=== PATIENT | male | born 1985 | race Caucasian/White ===

== ENCOUNTER → 2019-05-06 13:46 | Outpatient (BNVA) | payer SELFPAY | PROVIDERS: PCP Family Medicine; Visit Provider Nurse Practitioner | DX: F90.2 Attention-deficit hyperactivity disorder, combined type (principal) | CPT/HCPCS: 99214 ==

== ENCOUNTER 2020-04-16 20:05 | Inpatient (IN) | payer MEDICAID, SELFPAY ==
[2020-04-16 20:20] VITALS: BP 117/67; PULSE 112; RESP 12; TEMP 37; O2SAT 99; BMI 20.5
--- NOTE | 2020-04-16 20:37 | PC.NURSE ---
ED physician asked this nurse to call poison control
--- NOTE | 2020-04-16 20:37 | PC.NURSE ---
Poison control call talked to Renate BUNN who advised against Remazacone due to the possibility of participating seizures if the street drugs were cut with anything else.
[2020-04-16 20:41] VITALS: BP 117/67; PULSE 102; RESP 25; O2SAT 95
--- NOTE | 2020-04-16 20:44 | XRR_ITS ---
PROCEDURE INFORMATION: Exam: XR Chest, 1 View Exam date and time: 04/16/2020 9:05 PM Age: 34 years old Clinical indication: Other: Overdose; Patient HX: Possibly swallowed around 80 xanex TECHNIQUE: Imaging protocol: XR of the chest Views: 1 view. COMPARISON: CR Chest 1 [place] [id number] 12/23/2017 10:06 PM FINDINGS: Lungs: Unremarkable. No consolidation. Pleural space: Unremarkable. No pleural effusion. No pneumothorax. Heart/Mediastinum: Unremarkable. No cardiomegaly. Bones/joints: Unremarkable. XR/XR chest 1V portable [id number] IMPRESSION: No acute findings.
--- NOTE | 2020-04-16 20:45 | ECG_ITS ---
[facility], Former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 Measurements Intervals [place] Rate: 84 P: 62 KS: 163 QRS: 78 QRSD: 95 T: 57 QT: 344 QTc: 407 Interpretive Statements SINUS RHYTHM Compared to ECG 12/23/2017 21:16:46 Sinus tachycardia no longer present Electronically Signed On 04-17-2020 17:24:48 FEATHER BONER by Maryellen Duong M.D. [id number]
--- NOTE | 2020-04-16 20:45 | W.ED.PSYCH ---
HPI - Psych General: Chief Complaint: Psychiatric Symptoms Stated Complaint: POSS SWALLOWED AROUND 80 XANAX PILLS Time Seen by Provider: 04/16/20 20:36 History of Present Illness: HPI Narrative: The patient is a 34-year-old male with past medical history ADHD and depression. He comes to the ER complaining that he feels like he is tired of life and wants to end it all. He says about an hour and a half ago he took 90 Xanax tabs that he bought off the street complaint: suicidal ideation and feels depressed Onset (ago): minute(s) (90) Associated psychiatric symptoms: suicidal ideation If self harm: admits thoughts of self harm, has acted on plan and intentional overdose Review of Systems General: Reports: ROS unobtainable due to medical condition (he is intoxicated on xanax and refuses to answer questions. ) [facility] ED PFSH: Medical History (Updated 04/16/20 @ 22:17 by Umesh Frias MD) Attention-deficit hyperactivity disorder, combined type Social History Smoking and tobacco status: current every day smoker cigarettes Smoking risk assessment/counseling performed?: Yes Tobacco counseling given: counseling >3 minutes Current gender identity: Male Physical Exam Const: COMMON NORMALS: patient oriented x3, alert and well nourished GENERAL APPEARANCE: comfortable and disheveled ORIENTATION/CONSCIOUSNESS: Yes awake, Yes oriented to person, Yes oriented to place, Yes oriented to time and Yes confused OTHER: Slight confusion. Answers questions slowly. Distracted easily. HENMT: COMMON NORMALS: normocephalic, external ears normal and Normal external nose present HEAD & SCALP: normal to inspection and normocephalic NOSE: Normal external nose present EXTERNAL EAR: Yes external ears normal MOUTH: Normal oral and palatal mucosa present THROAT: posterior oropharynx normal Eye: COMMON NORMALS: Equal, round and reactive pupils present and EOMs intact bilaterally GENERAL EYE: appearance normal, both eyes and all related structures PUPIL: Yes Equal, round and reactive pupils present Neck/C-Spine: COMMON NORMALS: full ROM, no lymphadenopathy, no meningeal signs and no JVD GENERAL: Yes normal visual inspection Lymph: LYMPHATIC: no lymphadenopathy noted Chest: COMMONS NORMALS: normal inspection of the chest and normal palpation of entire chest wall Resp: COMMON NORMALS: normal respiratory effort, No retractions, No use of accessory muscles, clear to auscultation bilaterally and percussion normal EFFORT & INSPECTION: Yes able to speak in complete sentences AUSCULTATION: clear to auscultation bilaterally PERCUSSION: percussion normal Cardio: COMMON NORMALS: no JVD, regular rhythm, S1 normal heart sound present, S2 normal heart sound present and Peripheral pulses 2+ throughout RATE: tachycardic RHYTHM: regular rhythm HEART SOUNDS: S1 normal heart sound present and S2 normal heart sound present PERIPHERAL PULSES: Peripheral pulses 2+ throughout GI: COMMON NORMALS: Normal to inspection, nondistended, normoactive bowel sounds present, Soft to palpation, non-tender and no masses INSPECTION: Yes normal to inspection PALPATION: Yes Soft to palpation : COMMON NORMALS: Yes no CVA tenderness BLADDER/KIDNEY EXAM: Yes no CVA tenderness Back/Pelvis: COMMON NORMALS: no CVA tenderness, thoracic and lumbar spine normal to inspection, no thoracic nor lumbar tenderness and thoraco-lumbar ROM normal Extremity: COMMON NORMALS: normal to inspection, full ROM, capillary refill normal, no joint enlargement and no pedal edema GENERAL: Yes normal exam except as noted Neuro: COMMON NORMALS: patient oriented x3, CN's II-XII intact bilaterally, moves all extremities, no focal motor deficits, no sensory deficits noted and gait normal SENSORIUM/ORIENTATION: Yes alert, Yes oriented to person, Yes oriented to place and Yes oriented to time MENINGEAL SIGNS: Yes no meningeal signs Psych: APPEARANCE: Yes unkempt and Yes disheveled ATTITUDE: Yes uncooperative and Yes Belligerent attititude/behavior present SPEECH: Yes slow THOUGHT PROCESS: disorganized and confused THOUGHT CONTENT: Yes Suicidality present ATTENTION/CONCENTRATION: Yes attention grossly impaired and Yes concentration grossly impaired Skin: COMMON NORMALS: no rashes or lesions noted NARRATIVE SKIN EXAM: Normal except abrasions to upper forehead. GENERAL SKIN EXAM: no rashes or lesions noted MDM - Psych MDM Narrative: Medical decision making narrative: 8:45 PM. Poison control recommends monitoring symptoms only. No Romazicon because he could have taken other drugs which may precipitate a seizure if given Romazicon. 1010: Patient is still A&O x4 answering questions appropriately. His heart rate has improved some. Not requiring oxygen to breathe. Stable for admission to the ICU. 96-hour involuntary admission paperwork filled out. Lab Data: Labs: Lab Results 04/16/20 04/16/20 04/16/20 Range/Units 20:25 21:00 21:00 WBC 10.0 (4.0-10.0) 10^3/ uL RBC 5.02 (4.1-5.3) 10^6/u L Hgb 16.0 (11.7-16.6) g/dL Hct 46.6 (42.0-52.0) % MCV 92.8 (80-94) fL MCH 31.9 (28.0-34.0) pg MCHC 34.3 (30.0-36.0) g/dL RDW 12.3 (12.1-15.1) % Plt Count 455 H (130-400) 10^3/c mm MPV 9.2 (7.4-10.4) fL Neut % (Auto) 64.6 % Lymph % (Auto) 25.2 % [place] % (Auto) 7.5 % Eos % (Auto) 1.5 % Baso % (Auto) 0.9 % Neut # (Auto) 6.47 (1.8-7.7) 10^3/u L Lymph # (Auto) 2.5 (0.8-4.8) 10^3/u L [place] # (Auto) 0.8 (0.2-0.9) 10^3/u L Eos # (Auto) 0.2 (0.0-0.8) 10^3/u L Baso # (Auto) 0.1 (0.0-0.1) 10^3/u L Nucleated RBC % (a uto) 0 % Nucleated RBCs # 0.0 /100WBC Specimen Type Sample Site ABG pH (7.35-7.45) ABG pCO2 (35-45) mmHg ABG pO2 (80.0-100.0) mmH g ABG HCO3 (22-26) mmol/L ABG Base Excess (-2.0-2.0) mmol/ L Devon Test Hematocrit (42-52) % Hgb O2 Saturation (95-100) % Carboxyhemoglobin (0.4-20.1) %THgb Methemoglobin (0.4-1.5) % Total Hemoglobin (14-18) g/dL O2 Delivery Device FiO2 % Assistant Auditor ID Sodium 139 (136-145) mmol/L Potassium 3.8 (3.5-5.1) mmol/L Chloride 101 (98-107) mmol/L Carbon Dioxide 27 (22-29) mmol/L Anion Gap 14.8 (5-19) BUN 14 (6-20) mg/dL Creatinine 0.7 (0.7-1.2) mg/dL GFR Calculation 130.7 H (90-130) mL/min Glucose 83 (65-115) mg/dL Calculated Osmolal ity 288 (285-295) mOsm/k g Lactate 1.6 (0.5-2.2) mmol/L Calcium 9.8 (8.5-10.5) mg/dL Total Bilirubin 0.3 (0.15-1.2) mg/dL AST 30 (0-40) U/L ALT 29 (0-41) U/L Alkaline Phosphata se 78 (40-130) IU/L Troponin T Baselin e (0-15) ng/L Total Protein 7.4 (6.6-8.7) g/dL Albumin 4.6 (3.5-5.2) g/dL Globulin 2.8 (1.3-4.6) g/dL Urine Color (Yellow) Urine Appearance (CLEAR) Urine pH (5-7) Ur Specific Gravit y (1.005-1.030) Urine Protein (Negative) Urine Glucose (UA) (Normal) Urine Ketones (Negative) Urine Blood (Negative) Urine Nitrate (Negative) Urine Bilirubin (Negative) Urine Urobilinogen (Negative) mg/dL Ur Leukocyte Charlene ase (Negative) Urine RBC (0-2) /hpf Urine WBC (0-5) /hpf Ur Squamous Epith Cells (0-5) /hpf Amorphous Sediment Urine Bacteria (NONE) /hpf Salicylates < 0.3 L (3-10) mg/dL Urine Opiates Scre en (Negative) ng/mL Acetaminophen < 5.0 L (10-30) ug/mL Ur Barbiturates Sc reen (Negative) ng/mL Ur Phencyclidine S crn (Negative) ng/mL Ur Amphetamines Sc reen (Negative) ng/mL U Benzodiazepines Scrn (Negative) ng/mL Urine Cocaine Scre en (Negative) ng/mL U Marijuana (THC) Screen (Negative) ng/mL Ethyl Alcohol < 10 (0-10) mg/dL 04/16/20 04/16/20 04/16/20 Range/Units 21:00 21:01 21:29 WBC (4.0-10.0) 10^3/ uL RBC (4.1-5.3) 10^6/u L Hgb (11.7-16.6) g/dL Hct (42.0-52.0) % MCV (80-94) fL MCH (28.0-34.0) pg MCHC (30.0-36.0) g/dL RDW (12.1-15.1) % Plt Count (130-400) 10^3/c mm MPV (7.4-10.4) fL Neut % (Auto) % Lymph % (Auto) % [place] % (Auto) % Eos % (Auto) % Baso % (Auto) % Neut # (Auto) (1.8-7.7) 10^3/u L Lymph # (Auto) (0.8-4.8) 10^3/u L [place] # (Auto) (0.2-0.9) 10^3/u L Eos # (Auto) (0.0-0.8) 10^3/u L Baso # (Auto) (0.0-0.1) 10^3/u L Nucleated RBC % (a uto) % Nucleated RBCs # /100WBC Specimen Type Arterial Sample Site Radial, left ABG pH 7.46 H (7.35-7.45) ABG pCO2 38.9 (35-45) mmHg ABG pO2 76.1 L (80.0-100.0) mmH g ABG HCO3 27.7 H (22-26) mmol/L ABG Base Excess 3.6 H (-2.0-2.0) mmol/ L Devon Test Pos Hematocrit 47.4 (42-52) % Hgb O2 Saturation 91.6 L (95-100) % Carboxyhemoglobin 4.3 (0.4-20.1) %THgb Methemoglobin 0.7 (0.4-1.5) % Total Hemoglobin 15.5 (14-18) g/dL O2 Delivery Device Room air FiO2 21.0 % Assistant Auditor ID Amh Sodium (136-145) mmol/L Potassium (3.5-5.1) mmol/L Chloride (98-107) mmol/L Carbon Dioxide (22-29) mmol/L Anion Gap (5-19) BUN (6-20) mg/dL Creatinine (0.7-1.2) mg/dL GFR Calculation (90-130) mL/min Glucose (65-115) mg/dL Calculated Osmolal ity (285-295) mOsm/k g Lactate (0.5-2.2) mmol/L Calcium (8.5-10.5) mg/dL Total Bilirubin (0.15-1.2) mg/dL AST (0-40) U/L ALT (0-41) U/L Alkaline Phosphata se (40-130) IU/L Troponin T Baselin e 6 (0-15) ng/L Total Protein (6.6-8.7) g/dL Albumin (3.5-5.2) g/dL Globulin (1.3-4.6) g/dL Urine Color Yellow (Yellow) Urine Appearance Clear (CLEAR) Urine pH 5 (5-7) Ur Specific Gravit y 1.010 (1.005-1.030) Urine Protein Neg (Negative) Urine Glucose (UA) Norm (Normal) Urine Ketones Negative (Negative) Urine Blood Trace H (Negative) Urine Nitrate Negative (Negative) Urine Bilirubin Neg (Negative) Urine Urobilinogen Norm (Negative) mg/dL Ur Leukocyte Charlene ase Negative (Negative) Urine RBC 0-4 H (0-2) /hpf Urine WBC 0-4 H (0-5) /hpf Ur Squamous Epith Cells 0-4 H (0-5) /hpf Amorphous Sediment Not Reportable Urine Bacteria Trace (NONE) /hpf Salicylates (3-10) mg/dL Urine Opiates Scre en (Negative) ng/mL Acetaminophen (10-30) ug/mL Ur Barbiturates Sc reen (Negative) ng/mL Ur Phencyclidine S crn (Negative) ng/mL Ur Amphetamines Sc reen (Negative) ng/mL U Benzodiazepines Scrn (Negative) ng/mL Urine Cocaine Scre en (Negative) ng/mL U Marijuana (THC) Screen (Negative) ng/mL Ethyl Alcohol (0-10) mg/dL 04/16/20 Range/Units 21:29 WBC (4.0-10.0) 10^3/ uL RBC (4.1-5.3) 10^6/u L Hgb (11.7-16.6) g/dL Hct (42.0-52.0) % MCV (80-94) fL MCH (28.0-34.0) pg MCHC (30.0-36.0) g/dL RDW (12.1-15.1) % Plt Count (130-400) 10^3/c mm MPV (7.4-10.4) fL Neut % (Auto) % Lymph % (Auto) % [place] % (Auto) % Eos % (Auto) % Baso % (Auto) % Neut # (Auto) (1.8-7.7) 10^3/u L Lymph # (Auto) (0.8-4.8) 10^3/u L [place] # (Auto) (0.2-0.9) 10^3/u L Eos # (Auto) (0.0-0.8) 10^3/u L Baso # (Auto) (0.0-0.1) 10^3/u L Nucleated RBC % (a uto) % Nucleated RBCs # /100WBC Specimen Type Sample Site ABG pH (7.35-7.45) ABG pCO2 (35-45) mmHg ABG pO2 (80.0-100.0) mmH g ABG HCO3 (22-26) mmol/L ABG Base Excess (-2.0-2.0) mmol/ L Devon Test Hematocrit (42-52) % Hgb O2 Saturation (95-100) % Carboxyhemoglobin (0.4-20.1) %THgb Methemoglobin (0.4-1.5) % Total Hemoglobin (14-18) g/dL O2 Delivery Device FiO2 % Assistant Auditor ID Sodium (136-145) mmol/L Potassium (3.5-5.1) mmol/L Chloride (98-107) mmol/L Carbon Dioxide (22-29) mmol/L Anion Gap (5-19) BUN (6-20) mg/dL Creatinine (0.7-1.2) mg/dL GFR Calculation (90-130) mL/min Glucose (65-115) mg/dL Calculated Osmolal ity (285-295) mOsm/k g Lactate (0.5-2.2) mmol/L Calcium (8.5-10.5) mg/dL Total Bilirubin (0.15-1.2) mg/dL AST (0-40) U/L ALT (0-41) U/L Alkaline Phosphata se (40-130) IU/L Troponin T Baselin e (0-15) ng/L Total Protein (6.6-8.7) g/dL Albumin (3.5-5.2) g/dL Globulin (1.3-4.6) g/dL Urine Color (Yellow) Urine Appearance (CLEAR) Urine pH (5-7) Ur Specific Gravit y (1.005-1.030) Urine Protein (Negative) Urine Glucose (UA) (Normal) Urine Ketones (Negative) Urine Blood (Negative) Urine Nitrate (Negative) Urine Bilirubin (Negative) Urine Urobilinogen (Negative) mg/dL Ur Leukocyte Charlene ase (Negative) Urine RBC (0-2) /hpf Urine WBC (0-5) /hpf Ur Squamous Epith Cells (0-5) /hpf Amorphous Sediment Urine Bacteria (NONE) /hpf Salicylates (3-10) mg/dL Urine Opiates Scre en Negative (Negative) ng/mL Acetaminophen (10-30) ug/mL Ur Barbiturates Sc reen Negative (Negative) ng/mL Ur Phencyclidine S crn Negative (Negative) ng/mL Ur Amphetamines Sc reen Negative (Negative) ng/mL U Benzodiazepines Scrn Positive H (Negative) ng/mL Urine Cocaine Scre en Negative (Negative) ng/mL U Marijuana (THC) Screen Positive H (Negative) ng/mL Ethyl Alcohol (0-10) mg/dL Discharge Plan Discharge Patient Disposition: Admitted As Inpatient Clinical Impression: Drug overdose, intentional, Suicidal ideation Condition: Critical Prescriptions: No Action atomoxetine [Strattera] 80 mg capsule 80 mg PO QAM Qty: 30 RF: 5 dextroamphetamine-amphetamine [Adderall XR] 30 mg capsule,extended release 24hr 30 mg PO BID 30 Days Qty: 60 RF: 0 citalopram 20 mg tablet 20 mg PO DAILY Qty: 30 RF: 5 Referrals: Grabiel Aguilar MD [Primary Care Provider] - Coding Level of Care Code ED Public Health Aides Teacher for Chg Fwd Exam Comprehensive
[2020-04-16 20:56] LABS: Basophils # 0.1 10^3/uL (0.0-0.1); Basophils % 0.9 %; Eosinophils # 0.2 10^3/uL (0.0-0.8); Eosinophils % 1.5 %; Hematocrit 46.6 % (42.0-52.0); Lymphocytes # 2.5 10^3/uL (0.8-4.8); Lymphocytes % 25.2 %; Mean Corpuscular HGB Conc 34.3 g/dL (30.0-36.0); Mean Corpuscular Hemoglobin 31.9 pg (28.0-34.0); Mean Corpuscular Volume 92.8 fL (80-94); Mean Platelet Volume 9.2 fL (7.4-10.4); Monocytes # 0.8 10^3/uL (0.2-0.9); Monocytes % 7.5 %; Neutrophils # 6.47 10^3/uL (1.8-7.7); Neutrophils % 64.6 %; Nucleated Red Blood Cells % 0 %; Platelet Count 455 10^3/cmm (130-400); Red Blood Count 5.02 10^6/uL (4.1-5.3); Red Cell Distribution Width 12.3 % (12.1-15.1)
[2020-04-16 21:12] LABS: ABG PCO2 38.9 mmHg (35-45); ABG PH Result 7.46 (7.35-7.45); Arterial Blood Gas Hematocrit 47.4 % (42-52); Base Excess ABG 3.6 mmol/L (-2.0-2.0); Blood Gas Allen Test Pos; Blood Gas Operator Identificat AMH; Blood Gas Sample Site Radial, left; Blood Gas Sample Type Arterial; Carboxyhemoglobin 4.3 %THgb (0.4-20.1); HCO3 ABG 27.7 mmol/L (22-26); HGB O2 Sat 91.6 % (95-100); Methemoglobin 0.7 % (0.4-1.5); Oxygen Device ROOM AIR; PO2 ABG 76.1 mmHg (80.0-100.0); Total Hemoglobin 15.5 g/dL (14-18)
[2020-04-16 21:23] LABS: Lactate (Lactic Acid level) 1.6 mmol/L (0.5-2.2)
[2020-04-16 21:25] LABS: Troponin(5th) Baseline 6 ng/L (0-15)
[2020-04-16 21:26] VITALS: BP 117/67; PULSE 109; RESP 16; O2SAT 100
[2020-04-16 21:26] LABS: Acetaminophen < 5.0 ug/mL (10-30); Alanine Aminotransferase 29 U/L (0-41); Albumin Level 4.6 g/dL (3.5-5.2); Alcohol Level < 10 mg/dL (0-10); Alkaline Phosphatase 78 IU/L (40-130); Anion Gap 14.8 (5-19); Aspartate Amino Transferase 30 U/L (0-40); Blood Urea Nitrogen 14 mg/dL (6-20); Calcium 9.8 mg/dL (8.5-10.5); Carbon Dioxide 27 mmol/L (22-29); Chloride 101 mmol/L (98-107); Globulin 2.8 g/dL (1.3-4.6); Glomerular Filtration Rate 130.7 mL/min (90-130); Glucose 83 mg/dL (65-115); Osmolality Calculated 288 mOsm/kg (285-295); Potassium 3.8 mmol/L (3.5-5.1); Salicylate < 0.3 mg/dL (3-10); Sodium 139 mmol/L (136-145); Total Bilirubin 0.3 mg/dL (0.15-1.2); Total Protein 7.4 g/dL (6.6-8.7)
[2020-04-16 21:44] LABS: Add Urine Microscopic? YES; Bilirubin Urine Neg (Negative); Blood Urine Trace (Negative); Glucose Urine UA Norm (Normal); Ketones Urine Negative (Negative); Leukocyte Esterase Urine Negative (Negative); Nitrate Urine Negative (Negative); Protein Urine Neg (Negative); Urine Appearance Clear (CLEAR); Urine Color Yellow (Yellow); Urobilinogen Urine Norm (Negative); pH Urine 5 (5-7)
[2020-04-16 21:49] LABS: Add Urine Culture? No; Bacteria Urine TRACE /hpf; RBC Urine 0-4 /hpf (0-2); Squamous Epithelial Cell Urine 0-4 /hpf (0-5); WBC Urine 0-4 /hpf (0-5)
[2020-04-16] MEDS: sodium chloride 0.9% 1,000 ML 999 ML IV (21:50)
[2020-04-16 21:53] LABS: Opiate Screen Urine Negative (Negative)
[2020-04-16 22:11] LABS: Amphetamines Screen Urine Negative (Negative); Barbiturates Screen Urine Negative (Negative); Benzodiazepines Screen Urine Positive (Negative); Cocaine Screen Urine Negative (Negative); PCP Screen Urine Negative (Negative); THC Screen Urine Positive (Negative)
--- NOTE | 2020-04-16 22:27 | P.HP_ITS ---
Providers/Chief Complaint Primary Care Provider: Grabiel Aguilar MD Chief Complaint: POSS SWALLOWED AROUND 80 XANEX PILLS History of Present Illness 34-year-old gentleman is being admitted after about an hour from presenting to ER he took 60-90 tablets of Xanax which he bought off the street. When asked if he was trying to harm himself in doing so, states them right I was trying to kill myself . He has been severely depressed, feels life is not worth living. Later on when asked about any allergies to medications, replies I do not know of any, but if we find out, I hope you pump me full of them . He denies congestion of anything else. His toxicology screen is positive for marijuana in addition to benzodiazepines. He is to marijuana, for which she states has a medical card. In ER poison control was contacted recommending supportive care and against flumazenil. 96-hour paperwork is filled out in ER. Review of Systems Const: Denies: fever(s), chills, body aches or malaise Eyes: Denies: change in vision or eye redness ENMT: Denies: throat pain, oral sores or ear or mastoid pain Card: Denies: chest pain, edema, pre-syncope or dyspnea on exertion Resp: Denies: dyspnea, productive cough, change in phlegm color or hemoptysis GI: Denies: abdominal pain, nausea, vomiting, diarrhea, constipation, hematochezia or melena : Denies: flank pain, difficulty urinating, urinary frequency or hematuria Musc: Reports: other (chronic msk pain); Denies: joint swelling or joint redness Skin/Breast: Denies: rash, sores or new lesions Neuro: Denies: headache(s), numbness in extremities, weakness in extremities, dizziness, confusion or seizure-like activity Psych: Reports: depression, hopelessness, loss of interest and suicidal ideation Endo: Denies: polyuria or polydipsia Angel/Lymph: Denies: easy bleeding or purpura All/Imm: Denies: urticaria, throat swelling or tongue swelling Medications/Allergies Home Medications Medication Instructions Recorded Confirmed Last Taken Type atomoxetine 80 mg capsule 80 mg PO QAM #30 cap 02/25/20 02/25/20 Unknown Rx citalopram 20 mg tablet 20 mg PO DAILY #30 tab 02/25/20 02/25/20 Unknown Rx dextroamphetamine-amphetamine ER 30 mg PO BID 30 Days #60 cap 02/25/20 02/25/20 Unknown Rx 30 mg 24hr capsule,extend release Allergies Allergy/AdvReac Type Severity Reaction Status Date / Time No Known Allergies Allergy Unverified 05/06/19 13:56 PFSH Acute PFSH: Medical History (Updated 04/16/20 @ 22:36 by Aravind Segal MD) Attention-deficit hyperactivity disorder, combined type Chronic pain Surgical History H/O hernia repair Social History (Updated 04/16/20 @ 22:31 by Aravind Segal MD) Smoking and tobacco status: current every day smoker cigarettes Smoking risk assessment/counseling performed?: Yes Tobacco counseling given: counseling >3 minutes Alcohol intake: never Substance/Drug Use: current Other substance/drug use details: Reports medical marijuana Current gender identity: Male Supplemental PFSH Information: Reports father wore out his health very early in life Vitals/I&O/Wt Last Vital Signs Temp 98.6 F 04/16/20 20:20 Pulse 109 H 04/16/20 21:26 Resp 16 04/16/20 21:26 BP 117/67 04/16/20 21:26 Pulse Ox 100 04/16/20 21:26 Weight last 48 hrs Weight 72.575 kg Physical Exam Const: COMMON NORMALS: no acute distress and patient oriented x3 OTHER: Sluggish responses, mildly-moderately intoxicated HENMT: COMMON NORMALS: oropharynx normal FACE & SINUS: other (Vertical cuts on forehead about 1 cm in length, multiple cuts parallel runn) Neck/C-Spine: COMMON NORMALS: no JVD Resp: COMMON NORMALS: normal respiratory effort and clear to auscultation bilaterally AUSCULTATION: clear to auscultation bilaterally Cardio: COMMON NORMALS: no JVD, regular rhythm, S1 normal heart sound present, S2 normal heart sound present and No murmurs present (Cardio) RHYTHM: regular rhythm HEART SOUNDS: S1 normal heart sound present and S2 normal heart sound present GI: COMMON NORMALS: Normal to inspection, nondistended, normoactive bowel sounds present, Soft to palpation and non-tender PALPATION: Yes Soft to palpation Extremity: COMMON NORMALS: no joint enlargement and no pedal edema Neuro: COMMON NORMALS: patient oriented x3 and moves all extremities Skin: COMMON NORMALS: no rashes or lesions noted GENERAL SKIN EXAM: no rashes or lesions noted OTHER: Extensive tattoos Data : 04/16/20 20:25 04/16/20 21:00 A&P Assessment and plan (1) Drug overdose, intentional: Reports 60-90 tablets of Xanax about off the street. Denies any coingestions. Toxicology screen positive for marijuana which he says smokes for medical reasons and has a card. Currently he is intoxicated, but awakens easily, conversant. Denies pain or discomfort. When initially woke up thought he was at home, but reoriented quickly. He is saturating well on room air, at this time without signs of respiratory depression. He is being admitted to intensive care unit for additional monitoring, supportive care pending further psychiatric assessment and possible admission. Status: Acute Qualifiers: Encounter type: initial encounter Qualified Code(s): T50.902A - Poisoning by unspecified drugs, medicaments and biological substances, intentional self-harm, initial encounter (2) Suicide attempt: 96-hour hold paperwork filled out in ER. Will require additional psychiatric assessment and treatment once he is out of acute episode of overdose. Status: Acute (3) Major depression: Status: Acute (4) Attention-deficit hyperactivity disorder, combined type: Status: Acute Additional A&P Information Forehead abrasion/lacerations: Multiple small cuts running vertically parallel to each other across the forehead. He is not sure how he got it. No active bleeding currently. Will assess CT head. Attestations Medical Necessity Statement*: Admission of over 2 midnights is going to be needed for assessment and management of benzodiazepine overdose in a suicide attempt. Coding Level of Care Code Acute Caramel Candy Maker for Kaylin Byrd Diagnoses Drug overdose, intentional T50.902A Encounter type: initial encounter Suicide attempt T14.91XA Major depression F32.9 Attention-deficit hyperactivity disorder, combined type F90.2
--- NOTE | 2020-04-16 22:41 | CTR_ITS ---
PROCEDURE INFORMATION: Exam: CT Head Without Contrast Exam date and time: 04/16/2020 10:53 PM Age: 34 years old Clinical indication: Injury or trauma; Fall; Laceration; Consciousness not specified; Without residual foreign body; Forehead; Altered mental status/memory loss; Confusion or disorientation; Additional info: Cuts on forehead. Intoxicated/overdose TECHNIQUE: Imaging protocol: Computed tomography of the head without contrast. Radiation optimization: All CT scans at this facility use at least one of these dose optimization techniques: automated exposure control; mA and/or kV adjustment per patient size (includes targeted exams where dose is matched to clinical indication); or iterative reconstruction. ADDITIONAL STUDY INFORMATION: Total DLP (mGy-cm): 780.63 COMPARISON: No relevant prior studies available. FINDINGS: Examination is limited by artifacts from patient motion. Evaluation of the brain demonstrates no convincing areas of abnormal density when allowing for artifacts from patient motion. Size of ventricular system appears within normal limits for the patient's stated age. No definite depressed calvarial fracture is demonstrated. Visualized paranasal sinuses and mastoid air cells demonstrate no significant opacification. There is aeration of each anterior clinoid process and the optic nerves traverse these regions. CT/CT head wo con* [id number] IMPRESSION: No definite acute intracranial process is demonstrated when allowing for artifacts from patient motion. Radiation Dose CTDIVOL = (mGy): DLP = 780.63 (mGy-cm)
[2020-04-16] MEDS: nicotine 21 mg Patch 1 PATCH TRANSDERMA (23:53)
[2020-04-16 23:54] VITALS: BP 121/67; PULSE 95; RESP 14; O2SAT 98
[2020-04-17] VITALS (18 sets, daily range): BP systolic 93–142; BP diastolic 55–90; PULSE 67–87; RESP 15–20; TEMP 36.3–37.1; O2SAT 95–100
[2020-04-17] MEDS: lactated ringers 1,000 ML 100 ML IV ×2 (00:55→09:08)
[2020-04-17] MEDS: heparin 5,000 unit/mL INJ 1 mL 5000 UNIT SUBCUT ×2 (00:55→09:26)
--- NOTE | 2020-04-17 03:54 | PC.NURSE ---
Agustina BUNN from poison control called for an update on patient
[2020-04-17 04:14] LABS: Basophils # 0.1 10^3/uL (0.0-0.1); Basophils % 0.8 %; Eosinophils # 0.4 10^3/uL (0.0-0.8); Eosinophils % 4.2 %; Hematocrit 41.3 % (42.0-52.0); Hemoglobin 13.9 g/dL (11.7-16.6); Lymphocytes # 3.4 10^3/uL (0.8-4.8); Lymphocytes % 39.9 %; Mean Corpuscular HGB Conc 33.7 g/dL (30.0-36.0); Mean Corpuscular Hemoglobin 31.5 pg (28.0-34.0); Mean Corpuscular Volume 93.7 fL (80-94); Mean Platelet Volume 8.4 fL (7.4-10.4); Monocytes # 0.7 10^3/uL (0.2-0.9); Monocytes % 8.7 %; Neutrophils # 3.87 10^3/uL (1.8-7.7); Nucleated Red Blood Cells % 0 %; Platelet Count 362 10^3/cmm (130-400); Red Blood Count 4.41 10^6/uL (4.1-5.3); Red Cell Distribution Width 12.3 % (12.1-15.1); White Blood Count 8.4 10^3/uL (4.0-10.0)
[2020-04-17 04:42] LABS: Alanine Aminotransferase 21 U/L (0-41); Albumin Level 3.7 g/dL (3.5-5.2); Alkaline Phosphatase 65 IU/L (40-130); Anion Gap 10.8 (5-19); Aspartate Amino Transferase 22 U/L (0-40); Blood Urea Nitrogen 15 mg/dL (6-20); Calcium 8.9 mg/dL (8.5-10.5); Carbon Dioxide 28 mmol/L (22-29); Chloride 106 mmol/L (98-107); Globulin 2.3 g/dL (1.3-4.6); Glomerular Filtration Rate 130.7 mL/min (90-130); Glucose 92 mg/dL (65-115); Osmolality Calculated 292 mOsm/kg (285-295); Potassium 3.8 mmol/L (3.5-5.1); Sodium 141 mmol/L (136-145); Total Bilirubin 0.4 mg/dL (0.15-1.2)
--- NOTE | 2020-04-17 07:59 | PM.PN ---
Subjective Subjective: Interval history: Hernan confirms he took Xanax to harm himself. He denies any effects this morning. He reports he did it because he did not have his ADHD medication. Medications: Reviewed: Yes Vitals/I&O/Wt Last Vital Signs Temp 98.6 F 04/16/20 20:20 Pulse 75 04/17/20 07:28 Resp 16 04/17/20 07:28 BP 107/82 04/17/20 07:28 Pulse Ox 100 04/17/20 07:28 04/16/20 04/17/20 04/17/20 22:59 06:59 14:59 Intake Total 1000 / 1000 Balance 1000 / 1000 Weight last 48 hrs Weight 72.575 kg Physical Exam Narrative: EXAM NARRATIVE: General exam no apparent distress, alert and conversive Cardiovascular regular rate and rhythm without murmur Lungs clear Abdomen soft, positive bowel sounds Extremities no cyanosis clubbing or edema Data : 04/17/20 04:05 04/17/20 04:05 A&P Assessment and plan (1) Drug overdose, intentional: Reports he took 60 does not need Xanax, but is not really for sure of the number as he took a fair amount the day before. He reports he did this to harm himself. He has no evidence of any respiratory depression or lethargy currently. He reports he took the medication around 5 PM yesterday. I will continue to watch him briefly in the ICU this morning, and if no development of lethargy, other symptoms consider transfer to neuropsychiatric unit. Consult placed to psychiatry 96-hour hold order entered. Status: Acute Qualifiers: Encounter type: initial encounter Qualified Code(s): T50.902A - Poisoning by unspecified drugs, medicaments and biological substances, intentional self-harm, initial encounter (2) Suicide attempt: See above Status: Acute (3) Major depression: Status: Acute (4) Attention-deficit hyperactivity disorder, combined type: Status: Acute Additional A&P Information Forehead abrasions. CT head normal. Attestations Medical Necessity Statement*: Needs continued hospital stay for evaluation of suicide attempt by overdose. Coding Level of Care Code Acute Compound Machine Operator for Kaylin Byrd Diagnoses Drug overdose, intentional T50.902A Encounter type: initial encounter Suicide attempt T14.91XA Major depression F32.9 Attention-deficit hyperactivity disorder, combined type F90.2
--- NOTE | 2020-04-17 09:00 | PC.NURSE ---
Patient moved to room ICU 6.
--- NOTE | 2020-04-17 09:12 | PC.CHAP ---
Pastoral Care Encounter/Spiritual Assessment Type of Contact [] Declined game protector visit [] Patient/Family/Request visit [] Outpatient visit [] Follow-up visit [] Physician referral [] Code/Alert [] Routine visit [] Staff referral [] Actively dying [] Patient sleeping [] Family support [] [] Out of room [] Palliative care [] [] Receiving care in room [] Pre-surgical visit [] Trauma [] Long length of stay [x] ICU visit [] Other: Relational/Emotional Strength [] Patient feels connected with others/family/visitors/staff [] Distress [] Loneliness/isolation [] Abandonment Spirituality of Patient [] Person of Eli [] Attends Alevism of their Eli [] Believes in Prayer [] Reads Bible or Advent materials [] There are Spiritual issues to be addressed Assessment Technician Interventions [x] Prayer [] Active listening [] Non-anxious presence [] Spiritual/emotional support [] Crisis/trauma care [] Spiritual counseling [] Bereavement support [] Provided bereavement packet [] Provided Bible/devotional materials [] Provided toy/stuffed animal, coloring book to patient or family member [] Provided Communion [] Anointing/[place] [] Salvation [x] Completed spiritual assessment [] Other: Impact on Illness or Injury [] Angry [] Fearful [] Anxious [] Often cries [] Exhaustion [] Unable to work [] Unable to attend religion [] Unable to walk/stand [] Unable to read [] Unable to drive [] Unable to eat/drink [] Unable to sleep [] Unable to be with family [] Patient intubated [] Other: Summary Time spent with patient
--- NOTE | 2020-04-17 10:00 | PC.NURSE ---
Patient is becoming agitated. Voice getting louder. Increase in profanity. Patient states So what are you gonna do if I rip this out of arm and waggle my barrett in front of everyone . Patient nowstadnding at bedside. Patient has disconnected his IV. I asked patient to sit on the bed or to let me stop the bleeding from the IV tubing. Patient allowed me to cap IV. Asked patient if he would sit on the bed for a minute while we talk. Patient yelling now and walked out of room. Security had been called by community center worker Code 10 called. Patient met by code 10 staff in hallway by radiology waiting room.
--- NOTE | 2020-04-17 10:20 | PC.NURSE ---
Patient taken to NPU in a wheelchair and accompanied by security staff.
[2020-04-17] MEDS: nicotine 21 mg Patch 1 PATCH TRANSDERMA (10:39)
[2020-04-17] MEDS: diphenhydrAMINE 50 mg/mL SDV 1mL IM (11:27)
[2020-04-17] MEDS: LORazepam 2 mg/mL INJ 1 mL IM (11:27)
[2020-04-17] MEDS: haloperidol inj 5 mg/mL INJ 1 mL IM (11:27)
--- NOTE | 2020-04-17 12:52 | PC.RESP ---
Smoking Cessation information sent to patient.
--- NOTE | 2020-04-17 13:02 | PC.NURSE ---
Restraint removed 1300 2nd restraint removed-right wrist. Patient remains sleeping. He did wake up to answer yes when asked if he was ol.
--- NOTE | 2020-04-17 13:04 | PC.NURSE ---
1240 Restraint removed Patient remained sleeping, first restraint removed-Left leg
--- NOTE | 2020-04-17 13:46 | PC.NURSE ---
Patient Behavior/Code 10 At approximately 1120 the patient started becoming agitated wanting to leave. We explained he was on a court order. Staff heard a noise and he was found on the floor with a pillow case around his neck. Patient got back in bed and vitals were taken. Dr Salvador, security and business relationship manager came in room. At 1133 a code 10 was called because patient started ramming his head in wall. Patient was placed in a safe hold given injections and taken to the restraint room and placed in 4 pt restraints. He was still stating he wanted to and and was verbally abusive to staff and tried to hit his head during the transfer.
--- NOTE | 2020-04-17 21:59 | PC.NURSE ---
patient combative with staff today was given medication. Patient is currently with 1:1 sitter. Respirations 18 other V/S unobtainable at this time.
--- NOTE | 2020-04-17 23:59 | PC.NURSE ---
PM assessment Pt is sedated at this time, resting with respirations of 18. Pt has a 1:1 sitter at the bedside to monitor pts behavior. Report received from [facility] charge nurse, pt is actively suicidal with attempt to use pillow case to strangle himself, Pt overdosed on Xanax prior to admission, Security was called to restrain pt to prevent self injury. Continued request for 1:1 sitter to maintain pt safety while in this condition. Will continue to monitor patient.
[2020-04-18] MEDS: OLANZapine 5 mg ODT PO ×2 (02:23→21:58)
[2020-04-18 04:34] LABS: Basophils # 0.1 10^3/uL (0.0-0.1); Basophils % 0.6 %; Eosinophils # 0.5 10^3/uL (0.0-0.8); Eosinophils % 5.1 %; Hematocrit 40.7 % (42.0-52.0); Hemoglobin 13.8 g/dL (11.7-16.6); Lymphocytes # 3.1 10^3/uL (0.8-4.8); Lymphocytes % 31.9 %; Mean Corpuscular HGB Conc 33.9 g/dL (30.0-36.0); Mean Corpuscular Hemoglobin 31.9 pg (28.0-34.0); Mean Corpuscular Volume 94.2 fL (80-94); Monocytes % 10.2 %; Neutrophils % 51.9 %; Nucleated Red Blood Cells % 0 %; Platelet Count 390 10^3/cmm (130-400); Red Blood Count 4.32 10^6/uL (4.1-5.3); Red Cell Distribution Width 12.4 % (12.1-15.1); White Blood Count 9.8 10^3/uL (4.0-10.0)
[2020-04-18 04:44] LABS: Alanine Aminotransferase 20 U/L (0-41); Alkaline Phosphatase 71 IU/L (40-130); Anion Gap 13.4 (5-19); Aspartate Amino Transferase 35 U/L (0-40); Blood Urea Nitrogen 13 mg/dL (6-20); Calcium 9.1 mg/dL (8.5-10.5); Carbon Dioxide 28 mmol/L (22-29); Chloride 105 mmol/L (98-107); Globulin 1.7 g/dL (1.3-4.6); Glomerular Filtration Rate 130.7 mL/min (90-130); Glucose 113 mg/dL (65-115); Osmolality Calculated 295 mOsm/kg (285-295); Potassium 4.4 mmol/L (3.5-5.1); Sodium 142 mmol/L (136-145); Total Bilirubin 0.4 mg/dL (0.15-1.2); Total Protein 5.7 g/dL (6.6-8.7)
[2020-04-18 06:00] VITALS: BP 123/68; PULSE 77; RESP 18; TEMP 37.1; O2SAT 100
[2020-04-18] MEDS: CITALOPRAM 20 MG 1 EACH PO (06:41)
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
[2020-04-18] MEDS: nicotine 2 mg Gum BUCCAL ×6 (10:38→20:50)
[2020-04-18 13:45] VITALS: BP 115/75; PULSE 77; RESP 18; TEMP 37.1; O2SAT 100
[2020-04-18 19:42] VITALS: BP 124/88; PULSE 73; RESP 19; TEMP 37.1; O2SAT 97
[2020-04-18] MEDS: hyDROXYzine 25 mg Capsule 50 MG PO (19:45)
[2020-04-18] MEDS: trazodone 50 mg Tablet PO (19:46)
[2020-04-19] MEDS: nicotine 2 mg Gum BUCCAL ×4 (03:04→09:18)
[2020-04-19] MEDS: CITALOPRAM 20 MG 1 EACH PO (03:48)
[2020-04-19 06:00] VITALS: BP 115/76; PULSE 80; RESP 19; TEMP 36.6; O2SAT 97
[2020-04-19 06:38] LABS: Basophils % 0.5 %; Eosinophils # 0.3 10^3/uL (0.0-0.8); Eosinophils % 3.8 %; Hematocrit 43.3 % (42.0-52.0); Hemoglobin 14.4 g/dL (11.7-16.6); Lymphocytes # 2.4 10^3/uL (0.8-4.8); Lymphocytes % 31.1 %; Mean Corpuscular HGB Conc 33.3 g/dL (30.0-36.0); Mean Corpuscular Hemoglobin 30.9 pg (28.0-34.0); Mean Corpuscular Volume 92.9 fL (80-94); Mean Platelet Volume 8.8 fL (7.4-10.4); Monocytes # 0.8 10^3/uL (0.2-0.9); Monocytes % 9.8 %; Neutrophils # 4.18 10^3/uL (1.8-7.7); Neutrophils % 54.5 %; Nucleated Red Blood Cells % 0 %; Platelet Count 393 10^3/cmm (130-400); Red Blood Count 4.66 10^6/uL (4.1-5.3); Red Cell Distribution Width 12.1 % (12.1-15.1); White Blood Count 7.7 10^3/uL (4.0-10.0)
[2020-04-19 06:59] LABS: Alanine Aminotransferase 22 U/L (0-41); Albumin Level 4.8 g/dL (3.5-5.2); Alkaline Phosphatase 83 IU/L (40-130); Anion Gap 14.2 (5-19); Aspartate Amino Transferase 40 U/L (0-40); Blood Urea Nitrogen 11 mg/dL (6-20); Calcium 9.6 mg/dL (8.5-10.5); Carbon Dioxide 28 mmol/L (22-29); Chloride 100 mmol/L (98-107); Globulin 2.6 g/dL (1.3-4.6); Glomerular Filtration Rate 156.1 mL/min (90-130); Glucose 114 mg/dL (65-115); Osmolality Calculated 286 mOsm/kg (285-295); Potassium 4.2 mmol/L (3.5-5.1); Sodium 138 mmol/L (136-145); Total Bilirubin 0.4 mg/dL (0.15-1.2); Total Protein 7.4 g/dL (6.6-8.7)
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
[2020-04-19 12:35] VITALS: BP 115/76; PULSE 80; RESP 19; TEMP 36.6; O2SAT 97
== END 2020-04-19 12:49 | disposition home or self-care (01) | DRG 918 ==
LOC: ER 04-17 00:06 → ER IP 04-17 00:10 → ICU 04-17 07:32 → NP 04-17 10:27
PROVIDERS: Admitting Provider Internal Medicine; Emergency Provider Family Medicine; PCP Family Medicine; Visit Provider Psychiatry & Neurology Psychiatry
DX: T42.4X2A Poisoning by benzodiazepines, intentional self-harm, initial encounter (principal); Y92.009 Unspecified place in unspecified non-institutional (private) residence as the place of occurrence of the external cause; F32.9 Major depressive disorder, single episode, unspecified; F17.210 Nicotine dependence, cigarettes, uncomplicated; G89.29 Other chronic pain; F90.2 Attention-deficit hyperactivity disorder, combined type
CPT/HCPCS: 12345; 36415; 36600; 70450; 71045; 80053; 80306; 80307; 81001; 82805; 83605; 84484; 85025; 93005; 96372; 99284; J1200; J1630; J1644; J2060; J7030

== ENCOUNTER → 2020-08-31 07:47 | Outpatient (BNVA) | payer MEDICAID, SELFPAY | PROVIDERS: PCP Family Medicine; Visit Provider Counselor Mental Health | DX: F32.9 Major depressive disorder, single episode, unspecified (principal); F90.2 Attention-deficit hyperactivity disorder, combined type | CPT/HCPCS: 90834 ==

== ENCOUNTER 2020-09-08 09:06 | Outpatient (CLI) | payer MEDICAID, SELFPAY ==
--- NOTE | 2020-09-08 09:13 | XR_ITS ---
WS: [id number] Lumbar spine, 3 views, 09/08/2020 Clinical Data: M54.5 - Low back pain Comparison: None. Findings: No compression fractures or subluxation is seen of the lumbar vertebral bodies. No disc space narrowi ng is seen. The transverse processes and SI joints are normal. There is slight loss of anterior and central vertebral body height of the T11 vertebral body. This co uld represent a minimal compression fracture. There are surgical clips in the true pelvis. XR/XR lumbar spine 2-3V* [id number] Impression: 1. Negative lumbar spine. 2. Minimal loss of vertebral body height of T11.
== END 2020-09-08 09:07 | disposition home or self-care (01) ==
PROVIDERS: PCP Nurse Practitioner Family; Visit Provider Nurse Practitioner Family
DX: M54.5 Low back pain (principal)
CPT/HCPCS: 72100

== ENCOUNTER → 2020-09-12 07:27 | Outpatient (BNVA) | payer MEDICAID, SELFPAY | PROVIDERS: PCP Nurse Practitioner Family; Visit Provider Psychiatry & Neurology Psychiatry | DX: F32.5 Major depressive disorder, single episode, in full remission (principal); F90.2 Attention-deficit hyperactivity disorder, combined type; F12.90 Cannabis use, unspecified, uncomplicated | CPT/HCPCS: 99214 ==

== ENCOUNTER → 2020-09-13 08:34 | Outpatient (BNVA) | payer MEDICAID, SELFPAY | PROVIDERS: PCP Family Medicine; Visit Provider Counselor Mental Health | DX: F32.9 Major depressive disorder, single episode, unspecified (principal); F90.2 Attention-deficit hyperactivity disorder, combined type | CPT/HCPCS: 90834 ==

== ENCOUNTER → 2020-09-20 10:37 | Outpatient (BNVA) | payer MEDICAID, SELFPAY | PROVIDERS: PCP Family Medicine; Visit Provider Surgery | DX: K42.9 Umbilical hernia without obstruction or gangrene (principal) | CPT/HCPCS: 87635 ==

== ENCOUNTER 2020-09-25 07:48 | Day surgery (SDC) | payer MEDICAID, SELFPAY ==
[2020-09-22 13:07] VITALS: BMI 19.6
[2020-09-25] VITALS (7 sets, daily range): BP systolic 109–130; BP diastolic 67–85; PULSE 58–103; RESP 16–20; TEMP 36.3–36.4; O2SAT 98–100
--- NOTE | 2020-09-25 07:54 | W.PM.OPSUD ---
Surgery/Procedure H&P Update DATE OF PROCEDURE: September 25, 2020 DATE H&P PERFORMED: 09/15/20 H&P UPDATE INFORMATION: I have reviewed H&P completed within last 30 days, I have examined patient prior to procedure and Changes to prior documentation as noted here PLANNED PROCEDURE: Operation Date: 09/25/20 09:10 Proposed Procedures p open umbilical hernia repair w/ possible mesh 16939 k42.9(Not Applicable) - Andrei Yoo MD
[2020-09-25] MEDS: sodium chloride 0.9% 1,000 ML 30 ML IV (08:16)
--- NOTE | 2020-09-25 09:14 | ANES.PREANE2 ---
Pre-Anesthetic Assessment Pre-Anesthetic Assessment: Height/Weight: Height 1.88 m Weight 69.4 kg Temp Pulse Resp BP Pulse Ox 97.3 F L 103 H 18 130/77 100 09/25/20 08:01 09/25/20 08:01 09/25/20 08:01 09/25/20 08:01 09/25/20 08:01 Preop Diagnosis: Umbilical hernia Proposed Procedure: Operation Date: 09/25/20 09:10 Proposed Procedures p open umbilical hernia repair w/ possible mesh 79599 k42.9(Not Applicable) - Andrei Yoo MD Familial anesthetic complications: None Was Beta Magdalena taken within 24 hours: N/A Was Clonidine taken within 24 hours: N/A Last intake: Intake Last Liquid Date 09/24/20 Last Liquid Time 22:30 Last Solid Date 09/24/20 Last Solid Time 22:30 Social: Social History: Tobacco and No alcohol Exam: Pre-Anes Outpt Exam: alert, oriented x 3, clear to auscultation bilaterally and regular rate & rhythm Airway: Cervical ROM: WNL MP: 2 Dentition: Chipped and Other (very poor dentition, patient informed of risk of damage) Anesthetic Plan: ASA status: 2 Anesthesia: General Risk of > 500 ml blood loss (7ml/kg in children): No Meds/Allergies Current Medications: Current Medications Generic Name Dose Route Start Last Admin Trade Name Freq PRN Reason Stop Dose Admin Sodium Chloride 1,000 mls @ 30 ml s/hr 09/25/20 08:00 09/25/20 08:16 Sodium Chloride 0.9% IV 09/26/20 07:59 30 mls/hr .Q24H EMMA Administration PFSH Anesthesia PFSH: Medical History Attention-deficit hyperactivity disorder, combined type Chronic pain Surgical History History of bilateral inguinal hernia repair 2019 Social History Smoking and tobacco status: current every day smoker cigarettes Smoking risk assessment/counseling performed?: Yes Tobacco counseling given: counseling >3 minutes Alcohol intake: never Current gender identity: Male Data Anesthesia Cardiac Studies: No Data to Display
--- NOTE | 2020-09-25 10:27 | PM.OP ---
Operative Report Date of procedure: September 25, 2020 Pre-op Diagnosis: Umbilical hernia Post-op Diagnosis: Incarcerated umbilical hernia containing omentum measuring 1.5 cm Procedure Done: Open primary repair of incarcerated umbilical hernia containing omentum measuring 1.5 cm Pathology: none sent Surgeon: Andrei Yoo Anesthesia: General and Local Condition: stable Disposition: PACU Procedure: The patient was taken to the operating room and intubated under general anesthesia after IV antibiotic had been administered. The abdomen was prepped and draped in a sterile manner. A 2 cm supraumbilical longitudinal incision was made using a 15 blade, hernial sac dissected out using electrocautery and dissection with hemostats. The hernial sac was opened and omentum was reduced into the peritoneal cavity. Interrupted sutures using 0 Vicryl was used to close the hernial defect without any tension. The subcutaneous tissue was approximated using 3-0 Vicryl and skin was closed using running subcuticular 4-0 Monocryl sutures. Dermabond was applied and 20 mL of 0.5% Marcaine was infiltrated around the incision. A 2 x 2 gauze was then placed within the umbilicus and sterile dressings are applied. The patient was stable throughout the procedure.
--- NOTE | 2020-09-25 10:44 | SUR.PHASEI ---
1044- ORAL AIRWAY OUT, SIMPLE MASK AT 6LPM SAT 100%
[2020-09-25] MEDS: HYDROcodone-acetaminophen 5-325 mg Tablet 1 TAB PO (11:10)
--- NOTE | 2020-09-25 15:51 | ANE.PACU2 ---
Inpatient post-anesthesia follow up: Airway intact: Yes Vital signs: Temperature 97.5 F Pulse Rate 76 Respiratory Rate 18 Blood Pressure 125/84 Pulse Oximetry 99 Oxygen Delivery Me thod Room Air Oxygen Flow Rate 6 Fraction of Inspir ed Oxygen Hydration adequate: Yes Nausea and vomiting: No Pain level: 2 Mental status: Baseline
== END 2020-09-25 11:36 | disposition home or self-care (01) ==
PROVIDERS: PCP Family Medicine; Visit Provider Surgery
PROC: (CPT 49587; principal; 2020-09-25 09:10)
DX: K42.0 Umbilical hernia with obstruction, without gangrene (principal); F17.210 Nicotine dependence, cigarettes, uncomplicated
CPT/HCPCS: 49587; 96365; J0690; J1100; J1885; J2405; J2704; J3010; J3490; J7030

== ENCOUNTER 2020-09-27 11:53 | Day surgery (SDC) | payer MEDICAID, SELFPAY ==
[2020-09-27] VITALS (10 sets, daily range): BP systolic 108–128; BP diastolic 64–79; PULSE 43–77; RESP 16–19; TEMP 36.2–37.3; O2SAT 95–100; BMI 19.6
--- NOTE | 2020-09-27 12:59 | CT_ITS ---
WS: [id number] CT ABDOMEN AND PELVIS WITH CONTRAST HISTORY: abd pain. recent surgery on hernia 2 days ago TECHNIQUE: Imaging performed of the abdomen and pelvis with IV contrast. Single phase imaging of the abdomen. Coronal and sagittal reformats are submitted. All CT scans at [facility] use at least one of these dose optimization techniques: automated exposure control; mA and/or kV adjustment per patient size (includes targeted exams where dose is matched to clinical indication); or iterativ e reconstruction. IV CONTRAST: Omnipaque 300; 95 mL IV. Oral contrast: No DLP: 976.32 mGy.cm COMPARISON: 03/04/2018 Lower thorax: Lung bases are clear. Heart is normal size. Small hiatal hernia. Liver/biliary system: Normal size with no intrahepatic dilatation. Gallbladder: Normal. No gallstones or wall thickening. No pericholecystic fluid. Pancreas: Normal size pancreas and pancreatic duct. No adjacent inflammation. Spleen: Normal size spleen. No mass or infarct. Adrenal glands: Normal. Right kidney: Normal. Left kidney: Normal. Aorta: Normal. Lymphadenopathy: None. Free fluid: There is a moderate amount of free fluid in the pelvis. The Hounsfield units are slightly elevated suggesting this could be blood or complex fluid. There is also small amount of fluid along the inferior RIGHT lobe the liver along the paracolic gutter. GI tract: There is marked amount of air throughout the colon. Large amount of inspissated fecal mater ial in the RIGHT colon. The appendix is deep within the RIGHT pelvis and appears very slightly hypere mone. There is still air within the appendix. The appendix measures top normal at 6 to 7 mm. The fluid is adjacent to the appendix. . No inguinal hernia. Abdominal wall: Postsurgical changes are noted near the umbilicus. There is soft tissue thickening wi thout focal fluid collection. There is a small amount of air at the surgical site. Pelvis: Moderate amount of free fluid in the pelvis is mildly complex. Bones: Unilateral LEFT L5 pars defect. CT/CT abdomen pelvis w con* [id number] IMPRESSION: 1. Moderate amount of free fluid in the pelvis is mildly complex. This may be hemorrhage or infection. 2. Postsurgical changes near the umbilicus. Soft tissue thickening with no enh ancing mass or abscess. 3. Severe constipation with inspissated fecal material in the RIGHT abdomen. 4. The appendix is visualized and contains air. The appendix is surrounded by the free fluid in the pelvis. Mild hyperemia and top normal size at 6 to 7 mm. Due to the fluid surrounding the appendix acute appendicitis should be consider ed as a possible etiology even though there is still air within the appendix. T he distal tip of the appendix may have perforated. Notified Dr. Aden at 09/27/2020 1:55 PM.
[2020-09-27] MEDS: sodium chloride 0.9% 1,000 ML 999 ML IV (13:15)
--- NOTE | 2020-09-27 13:15 | W.ED.ABDPA2 ---
HPI - Abdominal Pain General: Chief Complaint: Abdominal Pain Stated Complaint: n/v post surgery Time Seen by Provider: 09/27/20 13:00 History of Present Illness: HPI narrative: 35-year-old male who presents emergency room complaining of abdominal pain. He had a hernia surgery done 2 days ago. Is complaining of nausea and vomiting severe stomach cramping and bloating he is passing gas initially but now is not passing gas has not had any bowel movement. He denies dysuria urgency or frequency. MD elicited complaint: abdominal pain Pertinent past history: other (Recent umbilical hernia repair) Onset (ago): hour(s) Pain Consistency: constant Location: Periumbilical Severity: severe Quality: cramping Radiation: none Migration to: no migration Exacerbating factors: eating, vomiting and movement Relieving factors: nothing Associated Symptoms: Reports bloating, change in bowel habits, GI cramping, diarrhea and hematochezia; Denies anorexia, belching, change in stool character, chills, coffee ground emesis, constipation, dyspepsia, dysuria, excessive flatus, fever(s), heartburn, hematuria, hematemesis, fecal incontinence, loose stools, melena, nausea, poor appetite, syncope and vomiting Review of Systems Const: Denies: fever(s) or chills ENMT: Denies: throat pain, ear or mastoid pain, nasal discharge or nasal congestion Card: Denies: syncope Resp: Denies: dyspnea, productive cough or non-productive cough GI: Reports: diarrhea, bloating, GI cramping, change in bowel habits and hematochezia; Denies: nausea, vomiting, hematemesis, coffee ground emesis, heartburn, constipation, belching, excessive flatus, fecal incontinence, change in stool character or melena : Denies: dysuria or hematuria Skin/Breast: Denies: rash or pruritus PFSH ED PFSH: Medical History (Updated 09/30/20 @ 15:20 by Kenn Aden DO) Attention-deficit hyperactivity disorder, combined type Chronic pain Surgical History (Updated 09/27/20 @ 17:57 by Andrei Yoo MD) History of bilateral inguinal hernia repair 2019 History of umbilical hernia repair (09/25/20) S/P laparoscopic appendectomy (09/27/20) Social History Smoking and tobacco status: current every day smoker cigarettes Smoking risk assessment/counseling performed?: Yes Tobacco counseling given: counseling >3 minutes Alcohol intake: never Current gender identity: Male Physical Exam Const: COMMON NORMALS: no acute distress GENERAL APPEARANCE: cooperative and comfortable ORIENTATION/CONSCIOUSNESS: Yes awake, Yes oriented to person, Yes oriented to place and Yes oriented to time HENMT: COMMON NORMALS: normocephalic, atraumatic, hearing grossly normal bilaterally and external ears normal HEAD & SCALP: normocephalic and atraumatic EXTERNAL EAR: Yes external ears normal Neck/C-Spine: COMMON NORMALS: no JVD Resp: COMMON NORMALS: normal respiratory effort, No retractions, No use of accessory muscles and clear to auscultation bilaterally AUSCULTATION: clear to auscultation bilaterally Cardio: COMMON NORMALS: no JVD, regular rate, regular rhythm and No murmurs present (Cardio) RATE: regular rate RHYTHM: regular rhythm GI: COMMON NORMALS: No hepatosplenomegaly present AUSCULTATION: Yes Hypoactive bowel sounds present PALPATION: Yes Tenderness to palpation present (GI) Details: RLQ, Yes Guarding due to palpation present (GI) and Yes No hepatosplenomegaly present Extremity: COMMON NORMALS: normal to inspection, capillary refill normal, no clubbing, cyanosis or edema, no calf tenderness and no pedal edema Neuro: SENSORIUM/ORIENTATION: Yes oriented to person, Yes oriented to place and Yes oriented to time Skin: COMMON NORMALS: no rashes or lesions noted GENERAL SKIN EXAM: no rashes or lesions noted Course Vital Signs: Vital signs: Vital Signs Temperature 97.9 F 09/27/20 18:18 Pulse Rate 48 L 09/27/20 18:18 Respiratory Rate 16 09/27/20 18:18 Blood Pressure 112/72 09/27/20 18:18 Pulse Oximetry 96 09/27/20 18:18 MDM - Abdominal Pain MDM Narrative: Medical decision making narrative: Diminished bowel sounds exquisitely tender abdomen there is fluid around the appendix but is difficult to identify. Is concerning for acute appendicitis discussed Dr. Yoo with her going to go ahead and take him to the operating room admit to Dr. Yoo orders written Lab Data: Labs: Lab Results 09/27/20 09/27/20 09/27/20 Range/Units 13:15 13:15 13:15 WBC 14.5 H (4.0-10.0) 10^3/ uL RBC 4.81 (4.1-5.3) 10^6/u L Hgb 15.1 (11.7-16.6) g/dL Hct 45.5 (42.0-52.0) % MCV 94.6 H (80-94) fL MCH 31.4 (28.0-34.0) pg MCHC 33.2 (30.0-36.0) g/dL RDW 12.7 (12.1-15.1) % Plt Count 463 H (130-400) 10^3/c mm MPV 8.6 (7.4-10.4) fL Neut % (Auto) 72.7 % Lymph % (Auto) 16.6 % [place] % (Auto) 8.5 % Eos % (Auto) 1.6 % Baso % (Auto) 0.3 % Neut # (Auto) 10.54 H (1.8-7.7) 10^3/u L Lymph # (Auto) 2.4 (0.8-4.8) 10^3/u L [place] # (Auto) 1.2 H (0.2-0.9) 10^3/u L Eos # (Auto) 0.2 (0.0-0.8) 10^3/u L Baso # (Auto) 0.1 (0.0-0.1) 10^3/u L Nucleated RBC % (a uto) 0 % Nucleated RBCs # 0.0 /100WBC Sodium 136 (136-145) mmol/L Potassium 4.2 (3.5-5.1) mmol/L Chloride 98 (98-107) mmol/L Carbon Dioxide 28 (22-29) mmol/L Anion Gap 14.2 (5-19) BUN 11 (6-20) mg/dL Creatinine 0.6 L (0.7-1.2) mg/dL GFR Calculation 155.2 H (90-130) mL/min Glucose 118 H (65-115) mg/dL Calculated Osmolal ity 282 L (285-295) mOsm/k g Lactic Acid 2.7 H (0.5-2.2) mmol/L Calcium 9.2 (8.5-10.5) mg/dL Total Bilirubin 0.2 (0.15-1.2) mg/dL AST 20 (0-40) U/L ALT 14 (0-41) U/L Alkaline Phosphata se 89 (40-130) IU/L Total Protein 6.5 L (6.6-8.7) g/dL Albumin 4.5 (3.5-5.2) g/dL Globulin 2.0 (1.3-4.6) g/dL Lipase 11 L (13-60) U/L Urine Color (Yellow) Urine Appearance (CLEAR) Urine pH (5-7) Ur Specific Gravit y (1.005-1.030) Urine Protein (Negative) Urine Glucose (UA) (Normal) Urine Ketones (Negative) Urine Blood (Negative) Urine Nitrate (Negative) Urine Bilirubin (Negative) Urine Urobilinogen (Negative) mg/dL Ur Leukocyte Charlene ase (Negative) 09/27/20 Range/Units 14:08 WBC (4.0-10.0) 10^3/ uL RBC (4.1-5.3) 10^6/u L Hgb (11.7-16.6) g/dL Hct (42.0-52.0) % MCV (80-94) fL MCH (28.0-34.0) pg MCHC (30.0-36.0) g/dL RDW (12.1-15.1) % Plt Count (130-400) 10^3/c mm MPV (7.4-10.4) fL Neut % (Auto) % Lymph % (Auto) % [place] % (Auto) % Eos % (Auto) % Baso % (Auto) % Neut # (Auto) (1.8-7.7) 10^3/u L Lymph # (Auto) (0.8-4.8) 10^3/u L [place] # (Auto) (0.2-0.9) 10^3/u L Eos # (Auto) (0.0-0.8) 10^3/u L Baso # (Auto) (0.0-0.1) 10^3/u L Nucleated RBC % (a uto) % Nucleated RBCs # /100WBC Sodium (136-145) mmol/L Potassium (3.5-5.1) mmol/L Chloride (98-107) mmol/L Carbon Dioxide (22-29) mmol/L Anion Gap (5-19) BUN (6-20) mg/dL Creatinine (0.7-1.2) mg/dL GFR Calculation (90-130) mL/min Glucose (65-115) mg/dL Calculated Osmolal ity (285-295) mOsm/k g Lactic Acid (0.5-2.2) mmol/L Calcium (8.5-10.5) mg/dL Total Bilirubin (0.15-1.2) mg/dL AST (0-40) U/L ALT (0-41) U/L Alkaline Phosphata se (40-130) IU/L Total Protein (6.6-8.7) g/dL Albumin (3.5-5.2) g/dL Globulin (1.3-4.6) g/dL Lipase (13-60) U/L Urine Color Yellow (Yellow) Urine Appearance Clear (CLEAR) Urine pH 7 (5-7) Ur Specific Gravit y 1.005 (1.005-1.030) Urine Protein Neg (Negative) Urine Glucose (UA) Norm (Normal) Urine Ketones Negative (Negative) Urine Blood Neg (Negative) Urine Nitrate Negative (Negative) Urine Bilirubin Neg (Negative) Urine Urobilinogen Norm (Negative) mg/dL Ur Leukocyte Charlene ase Negative (Negative) Discharge Plan Discharge Patient Disposition: Admitted As Inpatient Clinical Impression: Acute appendicitis Condition: Stable Coding Level of Care Code ED Security Delivery Specialist for [facility] Fwd Exam Comprehensive
[2020-09-27] MEDS: iohexol 300 mg/mL 100 mL Btl IV (13:21)
[2020-09-27 13:29] LABS: Basophils # 0.1 10^3/uL (0.0-0.1); Basophils % 0.3 %; Eosinophils # 0.2 10^3/uL (0.0-0.8); Eosinophils % 1.6 %; Hematocrit 45.5 % (42.0-52.0); Hemoglobin 15.1 g/dL (11.7-16.6); Lymphocytes # 2.4 10^3/uL (0.8-4.8); Lymphocytes % 16.6 %; Mean Corpuscular HGB Conc 33.2 g/dL (30.0-36.0); Mean Corpuscular Hemoglobin 31.4 pg (28.0-34.0); Mean Corpuscular Volume 94.6 fL (80-94); Mean Platelet Volume 8.6 fL (7.4-10.4); Monocytes # 1.2 10^3/uL (0.2-0.9); Monocytes % 8.5 %; Neutrophils # 10.54 10^3/uL (1.8-7.7); Neutrophils % 72.7 %; Nucleated Red Blood Cells % 0 %; Platelet Count 463 10^3/cmm (130-400); Red Blood Count 4.81 10^6/uL (4.1-5.3); Red Cell Distribution Width 12.7 % (12.1-15.1); White Blood Count 14.5 10^3/uL (4.0-10.0)
[2020-09-27 13:47] LABS: Alanine Aminotransferase 14 U/L (0-41); Albumin Level 4.5 g/dL (3.5-5.2); Alkaline Phosphatase 89 IU/L (40-130); Anion Gap 14.2 (5-19); Aspartate Amino Transferase 20 U/L (0-40); Blood Urea Nitrogen 11 mg/dL (6-20); Calcium 9.2 mg/dL (8.5-10.5); Carbon Dioxide 28 mmol/L (22-29); Chloride 98 mmol/L (98-107); Glomerular Filtration Rate 155.2 mL/min (90-130); Glucose 118 mg/dL (65-115); Lactic Sepsis W/Reflex 2.7 mmol/L (0.5-2.2); Lipase 11 U/L (13-60); Osmolality Calculated 282 mOsm/kg (285-295); Potassium 4.2 mmol/L (3.5-5.1); Sodium 136 mmol/L (136-145); Total Bilirubin 0.2 mg/dL (0.15-1.2); Total Protein 6.5 g/dL (6.6-8.7)
--- NOTE | 2020-09-27 14:10 | PC.NURSE ---
patient awared NPO status
[2020-09-27 14:21] LABS: Add Urine Microscopic? NO; Charge for UA Resulting for Rev
[2020-09-27 14:22] LABS: Bilirubin Urine Neg (Negative); Blood Urine Neg (Negative); Glucose Urine UA Norm (Normal); Ketones Urine Negative (Negative); Leukocyte Esterase Urine Negative (Negative); Nitrate Urine Negative (Negative); Protein Urine Neg (Negative); Specific Gravity, Urine 1.005 (1.005-1.030); Urine Appearance Clear (CLEAR); Urine Color Yellow (Yellow); Urobilinogen Urine Norm (Negative); pH Urine 7 (5-7)
[2020-09-27] MEDS: piperacillin-tazobactam 3.375 GM in sodium chloride 0.9% (plus) 50 ML IV (15:00)
[2020-09-27 15:13] LABS: Reflex Lactate Order REFLEX LACTIC ORDERD
--- NOTE | 2020-09-27 15:19 | PC.NURSE ---
report given to ONI Ahmadi.
--- NOTE | 2020-09-27 15:36 | P.ANESASSM_ITS ---
Pre-Anesthetic Assessment Pre-Anesthetic Assessment: Height/Weight: Height 1.88 m Weight 69.4 kg Temp Pulse Resp BP Pulse Ox 97.8 F 68 16 120/74 100 09/27/20 12:44 09/27/20 14:30 09/27/20 14:30 09/27/20 14:30 09/27/20 14:30 Preop Diagnosis: Suspected perforated appendicitis Proposed Procedure: Laparoscopic appendectomy Familial anesthetic complications: none Was Beta Magdalena taken within 24 hours: N/A Was Clonidine taken within 24 hours: N/A Last intake: > 8 hrs Social: Social History: No alcohol and No tobacco Exam: Pre-Anes Outpt Exam: alert, oriented x 3, clear to auscultation bilaterally and regular rate & rhythm Airway: Cervical ROM: WNL MP: 2 Additional comments: poor dentition Anesthetic Plan: ASA status: 2E Anesthesia: General Risk of > 500 ml blood loss (7ml/kg in children): No PFSH Anesthesia PFSH: Medical History Attention-deficit hyperactivity disorder, combined type Chronic pain Surgical History History of bilateral inguinal hernia repair 2019 History of umbilical hernia repair (09/25/20) Social History Smoking and tobacco status: current every day smoker cigarettes Smoking risk assessment/counseling performed?: Yes Tobacco counseling given: counseling >3 minutes Alcohol intake: never Current gender identity: Male Data Anesthesia CBC & Chem 7: 09/27/20 13:15 09/27/20 13:15 Other Labs: Laboratory Results - last 48 hr 09/27/20 09/27/20 09/27/20 13:15 13:15 13:15 WBC 14.5 H RBC 4.81 Hgb 15.1 Hct 45.5 MCV 94.6 H MCH 31.4 MCHC 33.2 RDW 12.7 Plt Count 463 H MPV 8.6 Neut % (Auto) 72.7 Lymph % (Auto) 16.6 [place] % (Auto) 8.5 Eos % (Auto) 1.6 Baso % (Auto) 0.3 Neut # (Auto) 10.54 H Lymph # (Auto) 2.4 [place] # (Auto) 1.2 H Eos # (Auto) 0.2 Baso # (Auto) 0.1 Nucleated RBC % (auto) 0 Nucleated RBCs # 0.0 Sodium 136 Potassium 4.2 Chloride 98 Carbon Dioxide 28 Anion Gap 14.2 BUN 11 Creatinine 0.6 L GFR Calculation 155.2 H Glucose 118 H Calculated Osmolality 282 L Lactic Acid 2.7 H Calcium 9.2 Total Bilirubin 0.2 AST 20 ALT 14 Alkaline Phosphatase 89 Total Protein 6.5 L Albumin 4.5 Globulin 2.0 Lipase 11 L Urine Color Urine Appearance Urine pH Ur Specific [place] Urine Protein Urine Glucose (UA) Urine Ketones Urine Blood Urine Nitrate Urine Bilirubin Urine Urobilinogen Ur Leukocyte Esterase 09/27/20 14:08 WBC RBC Hgb Hct MCV MCH MCHC RDW Plt Count MPV Neut % (Auto) Lymph % (Auto) [place] % (Auto) Eos % (Auto) Baso % (Auto) Neut # (Auto) Lymph # (Auto) [place] # (Auto) Eos # (Auto) Baso # (Auto) Nucleated RBC % (auto) Nucleated RBCs # Sodium Potassium Chloride Carbon Dioxide Anion Gap BUN Creatinine GFR Calculation Glucose Calculated Osmolality Lactic Acid Calcium Total Bilirubin AST ALT Alkaline Phosphatase Total Protein Albumin Globulin Lipase Urine Color Yellow Urine Appearance Clear Urine pH 7 Ur Specific [place] 1.005 Urine Protein Neg Urine Glucose (UA) Norm Urine Ketones Negative Urine Blood Neg Urine Nitrate Negative Urine Bilirubin Neg Urine Urobilinogen Norm Ur Leukocyte Esterase Negative Cardiac Studies: No Data to Display
[2020-09-27] MEDS: sodium chloride 0.9% 1,000 ML 30 ML IV (16:23)
--- NOTE | 2020-09-27 16:28 | PM.HP ---
Providers/Chief Complaint Primary Care Provider: Grabiel Aguilar MD Chief Complaint: n/v post surgery History of Present Illness Hernan Mathis is a 35 year old male who had undergone primary repair of umbilical hernia 2 days ago as an outpatient. Patient had been doing well until this morning when he started having some abdominal pain associated with multiple episodes of vomiting. He states that his last bowel movement was 2 days ago. Denies any difficulty or burning sensation with urination. Denies any fevers or chills. He denies any trauma Review of Systems General: Reports: 10 or more systems reviewed and unremarkable except in HPI and below Medications/Allergies Home Medications Medication Instructions Recorded Confirmed Last Taken Type atomoxetine 100 mg capsule 100 mg PO QAM #30 cap 09/12/20 09/22/20 09/25/20 Rx citalopram 40 mg tablet 40 mg PO DAILY #30 tab 09/12/20 09/22/20 09/25/20 Rx trazodone 100 mg tablet 100 mg PO .qhs #30 tab 09/12/20 09/22/20 09/24/20 Rx docusate sodium [Colace] 100 mg PO BID #30 cap 09/25/20 Unknown Rx hydrocodone-acetaminophen 1 tab PO Q6H PRN #20 tab 09/25/20 Unknown Rx ondansetron HCl [Zofran] 4 mg PO Q6H PRN #20 tab 09/25/20 Unknown Rx Allergies Allergy/AdvReac Type Severity Reaction Status Date / Time No Known Allergies Allergy Verified 09/15/20 07:58 PFSH Acute PFSH: Medical History Attention-deficit hyperactivity disorder, combined type Chronic pain Surgical History History of bilateral inguinal hernia repair 2019 History of umbilical hernia repair (09/25/20) Social History Smoking and tobacco status: current every day smoker cigarettes Smoking risk assessment/counseling performed?: Yes Tobacco counseling given: counseling >3 minutes Alcohol intake: never Current gender identity: Male Vitals/I&O/Wt Last Vital Signs Temp 99.1 F 09/27/20 15:52 Pulse 58 L 09/27/20 15:52 Resp 16 09/27/20 15:52 BP 114/67 09/27/20 15:52 Pulse Ox 100 09/27/20 15:52 09/27/20 09/27/20 09/27/20 06:59 14:59 22:59 Intake Total 1000 / 1000 Balance 1000 / 1000 Weight last 48 hrs Weight 153 lb Physical Exam Narrative: EXAM NARRATIVE: HEENT: Normocephalic Eye: Sclera /conjunctiva normal Respiratory and chest: Bilateral clear breath sounds on auscultation Cardiovascular: Normal S1 and S2 heart sounds Abdomen: Soft to palpation, generalized tenderness, mainly localized in the right lower quadrant with voluntary guarding, no rigidity Neurological: Oriented to place person and time Skin: Intact, no lesions appreciated on gross exam Data : 09/27/20 13:15 09/27/20 13:15 A&P Assessment and plan (1) Abdominal pain: 35-year-old male status post open umbilical hernia repair 2 days ago who presents with abdominal pain, nausea and vomiting. His WBC is 14.5 and hemoglobin is 15.1 CT abdomen pelvis showed moderate amount of free fluid in the pelvis, no free air, severe constipation, with the appendix surrounded by free fluid. Discussed with the patient's that CT scan shows findings with fluid around appendix concerning for possible ruptured appendicitis but since he is 2 days out from hernia repair there is also risk of postop complications like bleeding or bowel injury contributing to his pain today. We will therefore plan for diagnostic laparoscopy, possible appendectomy. I did did discuss with him the possibility of bowel resection if there are findings of bowel injury. Status: Acute Attestations Medical Necessity Statement*: Right lower quadrant with free fluid concerning for ruptured appendicitis, possible postop complication, plan for laparoscopy today Coding Level of Care Code Acute Restaurant Busser for [facility] Fwd Diagnoses Abdominal pain R10.9
--- NOTE | 2020-09-27 17:46 | PM.OP ---
Operative Report Date of procedure: September 27, 2020 Pre-op Diagnosis: 1.Suspected perforated appendicitis 2. Status post umbilical hernia repair 2 days ago 3. Severe constipation Post-op Diagnosis: 1. Severe constipation with ileus 2. Mildly inflamed appendix Procedure Done: Laparoscopic appendectomy Specimens removed/disposition: Appendix Surgeon: Andrei Yoo Condition: stable Disposition: PACU Procedure: The patient was taken to the Operating Room and intubated under general anesthesia after antibiotic had been administered. Using a 15 blade, a the existing hernia repair incision was opened and using open Danette technique, the peritoneal cavity was entered. A 12mm port with balloon was placed and 15 mm of pneumoperitoneum was created and 10-mm 30 degree scope was introduced. Two separate 5mm ports were placed in the left and right lower quadrant under direct visualization. The appendix was noted in the right lower quadrant and appeared mildly inflamed. The small bowel was examined from the ligament of Treitz to the ileocecal valve and there was no evidence of perforation or bowel obstruction. Patient appeared to have an ileus. There was large amount of air and stool within the colon. There was moderate amount of serous fluid in the pelvis which was irrigated and suctioned out.. Using [place] forceps, an opening was made in the mesoappendix near the base of the appendix. An Endo MC stapler 45mm long 3.5mm blue load was introduced to divide the appendix at it's base. Using electrocautery, the mesoappendix including the appendicular artery was divided. There was no bleeding noted and the staple line appeared intact. EndoCatch bag was introduced to remove the appendix. All three ports were removed under direct visualization and there was no bleeding noted on the port sites. 10 cc of 0.5% Marcaine was infiltrated at the port sites. The fascia at the supraumbilical hernia repair site was closed using figure of eight 0-Vicryl sutures and subcutaneous tissue was approximated using 3-0 Vicryl and skin at all 3 port sites was closed using 4-0 Monocryl and Dermabond.
[2020-09-27] MEDS: HYDROcodone-acetaminophen 5-325 mg Tablet 1 TAB PO (18:19)
== END 2020-09-27 18:33 | disposition home or self-care (01) ==
LOC: ER 14:20 → OPS 15:34 → MEDSURG 17:58 → OPS 18:20
PROVIDERS: Family Medicine; Emergency Provider Family Medicine; PCP Family Medicine; Visit Provider Surgery
PROC: 0DTJ4ZZ Resection of Appendix, Percutaneous Endoscopic Approach (ICD-10-PCS; CPT 44970; principal; 2020-09-27 16:30)
DX: K35.80 Unspecified acute appendicitis (principal); Z98.890 Other specified postprocedural states; K59.00 Constipation, unspecified; K56.7 Ileus, unspecified; F17.210 Nicotine dependence, cigarettes, uncomplicated
CPT/HCPCS: 44970; 74177; 80053; 81003; 83605; 83690; 85025; 88304; 96361; 96365; J0330; J1100; J2250; J2405; J2543; J2704; J2710; J3010; J3490; J7030; Q9967

== ENCOUNTER → 2020-09-29 08:07 | Outpatient (BNVA) | payer MEDICAID, SELFPAY | PROVIDERS: PCP Family Medicine; Visit Provider Counselor Mental Health | DX: F32.9 Major depressive disorder, single episode, unspecified; F90.2 Attention-deficit hyperactivity disorder, combined type | CPT/HCPCS: 90834 ==

== ENCOUNTER 2020-10-05 08:46 | Outpatient (CLI) | payer MEDICAID, SELFPAY ==
--- NOTE | 2020-10-05 09:30 | MR_ITS ---
WS: [id number] MRI LUMBAR SPINE NONCONTRAST TECHNIQUE: Sagittal T1, T2 and STIR imaging. Axial T1 and T2 imaging. CLINICAL INFORMATION: M54.5 - Low back pain COMPARISON: Radiograph September 08, 2020 FINDINGS: Mild lumbar curve. No acute compression. No high-grade central canal stenosis. Mild annular bulging L 4-5 with a small annular fissure. L1-L2: Normal. L2-L3: Normal L3-L4: Mild annular bulging with slight effacement of the ventral thecal sac. Narrowing of the Right greater than left subarticular recess. Spinal canal and foramen are patent. L4-L5: Mild annular bulging with a shallow central protrusion with a tiny annular tear. Slight imping ement traversing L5 nerve roots. Right eccentric disc bulging with mild right foraminal narrowing and slight encroachment on the far exiting right L4 nerve root laterally. Left foramen is patent. Mild facet arthropathy. L5-S1: No significant disc bulging. Mild facet arthropathy. Spinal canal and foramen are patent. Left renal cyst measuring 8 mm. Visualized pelvic bony structures: Normal. Paravertebral soft tissues: Normal. MR/MR lumbar spine wo con* [id number] IMPRESSION: 1. Mild lumbar curve. No acute compression. No high-grade central canal stenos is. 2. Shallow central protrusion L4-5 with impingement on traversing L5 nerve [place] ts bilaterally. Small annular fissure. 3. Mild annular bulging L3-4 with a tiny shallow central protrusion. Slight im pingement traversing L4 nerve roots right greater than left. 4. Right eccentric disc bulging L4-5 encroaches on the far exiting right L4 ne rve root laterally. 5. Mild facet arthropathy L3-L5.
== END 2020-10-05 08:47 | disposition home or self-care (01) ==
LOC: RADSHAW 08:48
PROVIDERS: Visit Provider Nurse Practitioner Family
DX: M47.816 Spondylosis without myelopathy or radiculopathy, lumbar region (principal); M51.26 Other intervertebral disc displacement, lumbar region
CPT/HCPCS: 72148

== ENCOUNTER → 2020-10-11 07:41 | Outpatient (BNVA) | payer MEDICAID, SELFPAY | PROVIDERS: Visit Provider Counselor Mental Health | DX: F32.9 Major depressive disorder, single episode, unspecified (principal); F90.2 Attention-deficit hyperactivity disorder, combined type | CPT/HCPCS: 90834 ==

== ENCOUNTER → 2020-10-18 07:27 | Outpatient (BNVA) | payer MEDICAID, SELFPAY | PROVIDERS: Visit Provider Counselor Mental Health | DX: F32.9 Major depressive disorder, single episode, unspecified (principal); F90.2 Attention-deficit hyperactivity disorder, combined type | CPT/HCPCS: 90834 ==

== ENCOUNTER → 2020-10-25 11:00 | Outpatient (BNVA) | payer MEDICAID, SELFPAY | PROVIDERS: Visit Provider Counselor Mental Health | DX: F32.9 Major depressive disorder, single episode, unspecified (principal); F90.2 Attention-deficit hyperactivity disorder, combined type | CPT/HCPCS: 90834 ==

== ENCOUNTER 2020-10-28 19:56 | Inpatient (IN) | payer MEDICAID, SELFPAY ==
[2020-10-28 19:57] VITALS: BP 146/85; PULSE 99; RESP 16; TEMP 36.8; O2SAT 98; BMI 19.8
--- NOTE | 2020-10-28 20:14 | W.ED.PSYCH ---
HPI - Psych General: Chief Complaint: Psychiatric Symptoms Stated Complaint: SI Time Seen by Provider: 10/28/20 20:03 Source: patient and EMS Mode of arrival: EMS Limitations: no limitations History of Present Illness: HPI Narrative: 35-year-old male who states that he has severe depression does not feel like living anymore. He supposed be on meds and he has not been taking any of his meds. He told me that he just wants to and he like to shoot himself in the head. He states that he just feels worthless and that he no longer wants to live. Associated symptoms: Reports suicidal ideation Review of Systems Const: Denies: fever(s), chills, body aches or change in appetite Eyes: Denies: blurry vision or eye discomfort ENMT: Denies: throat pain or dental pain Card: Denies: chest pain Resp: Denies: dyspnea GI: Denies: abdominal pain, nausea, vomiting or diarrhea : Denies: dysuria Musc: Denies: neck pain or back pain Skin/Breast: Denies: rash Neuro: Denies: headache(s) Psych: Reports: suicidal ideation Angel/Lymph: Denies: easy bruising All/Imm: Denies: urticaria PFSH ED PFSH: Medical History Attention-deficit hyperactivity disorder, combined type Chronic pain Surgical History History of bilateral inguinal hernia repair 2019 History of umbilical hernia repair (09/25/20) S/P laparoscopic appendectomy (09/27/20) Social History Smoking and tobacco status: never smoked Smoking risk assessment/counseling performed?: Yes Tobacco counseling given: counseling >3 minutes Alcohol intake: never Current gender identity: Male Physical Exam Const: COMMON NORMALS: no acute distress, patient oriented x3 and healthy appearing HENMT: COMMON NORMALS: normocephalic and atraumatic HEAD & SCALP: normocephalic and atraumatic Eye: COMMON NORMALS: Equal, round and reactive pupils present and EOMs intact bilaterally PUPIL: Yes Equal, round and reactive pupils present Neck/C-Spine: COMMON NORMALS: full ROM and supple Chest: COMMONS NORMALS: normal inspection of the chest and normal palpation of entire chest wall Resp: COMMON NORMALS: normal respiratory effort, No retractions, No use of accessory muscles and clear to auscultation bilaterally AUSCULTATION: clear to auscultation bilaterally Cardio: COMMON NORMALS: regular rate, regular rhythm and No murmurs present (Cardio) RATE: regular rate RHYTHM: regular rhythm GI: COMMON NORMALS: Normal to inspection, nondistended, normoactive bowel sounds present, Soft to palpation, non-tender and no masses PALPATION: Yes Soft to palpation Extremity: COMMON NORMALS: normal to inspection and full ROM Neuro: COMMON NORMALS: patient oriented x3, moves all extremities and no focal motor deficits Psych: COMMON NORMALS: mental status grossly normal, Normal thought process present and cooperative THOUGHT PROCESS: Normal thought process present THOUGHT CONTENT: Yes Suicidality present Skin: COMMON NORMALS: no rashes or lesions noted and no wounds GENERAL SKIN EXAM: no rashes or lesions noted Course Vital Signs: Vital signs: Vital Signs Temperature 98.2 F 10/28/20 19:57 Pulse Rate 99 10/28/20 19:57 Respiratory Rate 16 10/28/20 19:57 Blood Pressure 146/85 10/28/20 19:57 Pulse Oximetry 98 10/28/20 19:57 MDM - Psych MDM Narrative: Medical decision making narrative: Patient presents here with suicidal ideation. Patient is medically cleared and placed under 96-hour hold. Spoke to psychiatrist and will admit to the psychiatric unit. Lab Data: Labs: Lab Results 10/28/20 Range/Units 20:18 WBC 11.2 H (4.0-10.0) 10^3/ uL RBC 5.04 (4.1-5.3) 10^6/u L Hgb 15.9 (11.7-16.6) g/dL Hct 46.1 (42.0-52.0) % MCV 91.5 (80-94) fL MCH 31.5 (28.0-34.0) pg MCHC 34.5 (30.0-36.0) g/dL RDW 11.9 L (12.1-15.1) % Plt Count 380 (130-400) 10^3/c mm MPV 8.8 (7.4-10.4) fL Neut % (Auto) 66.8 % Lymph % (Auto) 21.5 % [place] % (Auto) 7.1 % Eos % (Auto) 4.0 % Baso % (Auto) 0.5 % Neut # (Auto) 7.48 (1.8-7.7) 10^3/u L Lymph # (Auto) 2.4 (0.8-4.8) 10^3/u L [place] # (Auto) 0.8 (0.2-0.9) 10^3/u L Eos # (Auto) 0.5 (0.0-0.8) 10^3/u L Baso # (Auto) 0.1 (0.0-0.1) 10^3/u L Nucleated RBC % (a uto) 0 % Nucleated RBCs # 0.0 /100WBC Discharge Plan Discharge Patient Disposition: Admitted As Inpatient Clinical Impression: Suicidal ideation Condition: Stable Coding Level of Care Code ED Criminal Investigator for [facility] Fwd Exam Comprehensive
[2020-10-28 20:28] LABS: Basophils # 0.1 10^3/uL (0.0-0.1); Basophils % 0.5 %; Eosinophils # 0.5 10^3/uL (0.0-0.8); Hematocrit 46.1 % (42.0-52.0); Hemoglobin 15.9 g/dL (11.7-16.6); Lymphocytes # 2.4 10^3/uL (0.8-4.8); Lymphocytes % 21.5 %; Mean Corpuscular HGB Conc 34.5 g/dL (30.0-36.0); Mean Corpuscular Hemoglobin 31.5 pg (28.0-34.0); Mean Corpuscular Volume 91.5 fL (80-94); Mean Platelet Volume 8.8 fL (7.4-10.4); Monocytes # 0.8 10^3/uL (0.2-0.9); Monocytes % 7.1 %; Neutrophils # 7.48 10^3/uL (1.8-7.7); Neutrophils % 66.8 %; Nucleated Red Blood Cells % 0 %; Platelet Count 380 10^3/cmm (130-400); Red Blood Count 5.04 10^6/uL (4.1-5.3); Red Cell Distribution Width 11.9 % (12.1-15.1); White Blood Count 11.2 10^3/uL (4.0-10.0)
[2020-10-28 21:12] LABS: Alanine Aminotransferase 6 U/L (0-41); Albumin Level 4.5 g/dL (3.5-5.2); Alkaline Phosphatase 105 IU/L (40-130); Anion Gap 15.8 (5-19); Aspartate Amino Transferase 14 U/L (0-40); Blood Urea Nitrogen 12 mg/dL (6-20); Calcium 9.3 mg/dL (8.5-10.5); Carbon Dioxide 24 mmol/L (22-29); Chloride 102 mmol/L (98-107); Glomerular Filtration Rate 111.3 mL/min (90-130); Glucose 66 mg/dL (65-115); Osmolality Calculated 284 mOsm/kg (285-295); Potassium 3.8 mmol/L (3.5-5.1); Sodium 138 mmol/L (136-145); Total Bilirubin 0.4 mg/dL (0.15-1.2); Total Protein 7.5 g/dL (6.6-8.7)
[2020-10-28 21:13] LABS: Acetaminophen < 5.0 ug/mL (10-30); Alcohol Level < 10 mg/dL (0-10); Salicylate < 0.3 mg/dL (3-10)
[2020-10-28 21:19] VITALS: BP 146/93; PULSE 101; RESP 16; TEMP 36.8; O2SAT 98
[2020-10-28 22:00] VITALS: BP 120/84; PULSE 78; RESP 18; TEMP 36.6; O2SAT 99
--- NOTE | 2020-10-29 05:22 | PC.NURSE ---
new admit pt is 35/m increasingly depressed with SI. Using Meth and THC to self-medicate. experiencing hardship financially, states he has chronic pain, was turned down for disability. Things are hard for him at this time, he feels like he is failing his children because he can not provide like he used to. He is tearful and angry that his life is in a mess. Pt states, I just want to .
--- NOTE | 2020-10-29 05:40 | PC.NURSE ---
Conversation Pt was denied SSI, A recent MRI shows that he abnormality in his spine and has an appointment with a specialist. States, I have had a lifetime of shit, 5 abdominal surgeries, 2 repaired hernias, appendix problems, and now I have lost my job. 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 My social anxiety is so bad that I can not do things in public, I just stay home.My boys ask for things that I can not give them, they would have more if I was . when I am stressed, I forget things as soon I say them People do not understand, I am supposed to see my sons on Friday, and now I have to choose if I need to eat or save the groceries for them. I can not go on like this.
[2020-10-29 06:00] VITALS: BP 100/62; PULSE 61; RESP 17; TEMP 36.8; O2SAT 99; BMI 19.8
--- NOTE | 2020-10-29 08:41 | PC.NURSE ---
Patient refused medication. Stated I don't take medication . When nurse clarified with patient his medication. He stated I dont take shit
--- NOTE | 2020-10-29 12:38 | PC.NURSE ---
Patient came up to the nurses station, without his scrub shirt. He asked if the doctor was in, I explained that the provider was here and was seeing other patients. Patient began cursing saying that he wants the fuck out of here, and that he has shit to do at home, and if his gang dogs , he is coming back to [facility] . Patient is extremely agitated. Encouraged the patient that the provider would be in to see him today. Patient became loud stating I'm not gonna eat shit, or take your medication while I'm here, I refuse your fucking treatments . Patient again reassured that provider would see him this morning. Provider notified. Patient is sitting next to the nurses station on the bench without a shirt on glaring at nursing staff.
--- NOTE | 2020-10-29 13:26 | PC.NURSE ---
Patient sitting near the nurses station, telling nursing staff that he is going to pull the fire alarms, and that he would shit all over the floor. Patient is extremely agitated and is wanting to leave. Patient yelled at nurses at the nurses station stating You are all fucking liars . Provider notified. Security notified.
--- NOTE | 2020-10-29 14:19 | PC.NURSE ---
Patient came to the nurses station Stating I want something to fucking drink . RN asked if he wanted some water, he stated no I dont want any fucking water. Patient demanded that nurse make him some coffee, and that Patient continued to be belligerent, reaching in the glass and knocking papers on the floor calling nurse a cunt and a bitch, because coffee was not provided for him.
[2020-10-29] MEDS: haloperidol inj 5 mg/mL INJ 1 mL IM (15:05)
[2020-10-29] MEDS: LORazepam 2 mg/mL INJ 1 mL IM (15:05)
[2020-10-29] MEDS: diphenhydrAMINE 50 mg/mL SDV 1mL IM (15:05)
--- NOTE | 2020-10-29 15:50 | W.PM.BREST ---
Face to Face: Restrn/Seclusion Events leading up to initiation: Verbalizing threat to self or others, Demonstrating self-destructive behavior (cutting, hitting posada etc.) and Combative/Striking out at staff or others Evaluation of patient's immediate situation: Alert and oriented, No signs of physical distress and Signs of psychological distress Patient reaction since intervention applied: Behaviors/threats have lessened, but still present Recent labs reviewed: Yes Review of medications: Yes Patient's current medical/behavioral condition: No new concerns since last ROS Need for restraint or seclusion is: Continued Attending notified: Attending completed assessment
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
[2020-10-29 16:30] VITALS: BP 109/65; PULSE 55; RESP 18; TEMP 36.5; O2SAT 93
--- NOTE | 2020-10-29 16:55 | PC.NURSE ---
Patient behavior; Clients left leg removed from restraint at 1647 staff continues to monitor client with 1;1 observation.
--- NOTE | 2020-10-29 17:05 | PC.NURSE ---
Clients behavior; Client remains in 3 point restraints after being released from his left leg restraint at 1647. Client offered range of motion and food and water. Client poilitely declined. Vital signs stable and within normal limits. Staff continues to monitor.
--- NOTE | 2020-10-29 17:15 | PC.NURSE ---
Pt NOTE Client offered water and client drank some water. Discussed releasing client from restraints. Clients right leg released from restraint at 1715. Client tolerated well. Staff continues to monitor client as 1;[address]. Client states he thinks he will be able to maintain his composure if released from restraints.
--- NOTE | 2020-10-29 17:40 | PC.NURSE ---
PT Behavior; Client released from restraints at 1730. Client reports that he is willing and able to control his temper at this time. Client escorted back to his room where he is resting comfortably without any s/s of distress noted. staff will continue to monitor.
[2020-10-29 21:50] VITALS: BP 101/65; PULSE 88; RESP 17; TEMP 37.1; O2SAT 99
[2020-10-30 06:00] VITALS: BP 97/63; PULSE 67; RESP 17; TEMP 36.7; O2SAT 98
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
[2020-10-30] MEDS: LORazepam 2 mg/mL INJ 1 mL IM (12:02)
[2020-10-30] MEDS: haloperidol inj 5 mg/mL INJ 1 mL IM (12:02)
[2020-10-30] MEDS: diphenhydrAMINE 50 mg/mL SDV 1mL IM (12:02)
--- NOTE | 2020-10-30 12:10 | W.PM.BREST ---
Face to Face: Restrn/Seclusion Events leading up to initiation: Verbalizing threat to self or others, Demonstrating self-destructive behavior (cutting, hitting posada etc.) and Combative/Striking out at staff or others Evaluation of patient's immediate situation: Alert and oriented, Signs of physical distress and Signs of psychological distress Patient reaction since intervention applied: Behaviors/threats have lessened, but still present Recent labs reviewed: Yes Review of medications: Yes Patient's current medical/behavioral condition: New concerns (describe) (Abrasions, heavy breathing, continued anger) Need for restraint or seclusion is: No longer present Attending notified: Attending completed assessment
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
[2020-10-30 14:00] VITALS: BP 116/72; PULSE 83; RESP 16; TEMP 36.7; O2SAT 97
[2020-10-30 20:40] VITALS: BP 89/59; PULSE 89; RESP 17; TEMP 37.1; O2SAT 96
[2020-10-31 05:29] VITALS: RESP 17
--- NOTE | 2020-10-31 08:04 | PC.NURSE ---
refused scheduled morning medications
[2020-10-31] MEDS: nicotine 2 mg Gum BUCCAL (10:15)
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
[2020-10-31 13:42] VITALS: RESP 17
== END 2020-10-31 13:48 | disposition home or self-care (01) | DRG 881 ==
LOC: ER 20:31 → NP 10-29 06:58
PROVIDERS: Admitting Provider Psychiatry & Neurology Psychiatry; Emergency Provider Emergency Medicine; Visit Provider Psychiatry & Neurology Psychiatry
DX: F32.9 Major depressive disorder, single episode, unspecified (principal); R45.851 Suicidal ideations; F90.2 Attention-deficit hyperactivity disorder, combined type; M54.5 Low back pain; F17.210 Nicotine dependence, cigarettes, uncomplicated; G89.29 Other chronic pain; F12.10 Cannabis abuse, uncomplicated
CPT/HCPCS: 80053; 80307; 85025; 96372; 99285; J1200; J1630; J2060

== ENCOUNTER → 2020-11-01 07:34 | Outpatient (BNVA) | payer MEDICAID, SELFPAY | PROVIDERS: Visit Provider Counselor Mental Health | DX: F32.9 Major depressive disorder, single episode, unspecified (principal); F90.2 Attention-deficit hyperactivity disorder, combined type | CPT/HCPCS: 90834 ==

== ENCOUNTER → 2020-11-02 09:22 | Outpatient (BNVA) | payer MEDICAID, SELFPAY | PROVIDERS: Referring Provider Nurse Practitioner Family; Visit Provider Orthopaedic Surgery | DX: M54.9 Dorsalgia, unspecified (principal) | CPT/HCPCS: 72120 ==

== ENCOUNTER → 2020-11-08 07:21 | Outpatient (BNVA) | payer MEDICAID, SELFPAY | PROVIDERS: Visit Provider Counselor Mental Health | DX: F32.9 Major depressive disorder, single episode, unspecified (principal); F90.2 Attention-deficit hyperactivity disorder, combined type | CPT/HCPCS: 90834 ==

== ENCOUNTER → 2020-11-16 07:16 | Outpatient (BNVA) | payer MEDICAID, SELFPAY | PROVIDERS: Visit Provider Psychiatry & Neurology Psychiatry | DX: F32.5 Major depressive disorder, single episode, in full remission (principal); F90.2 Attention-deficit hyperactivity disorder, combined type; F12.90 Cannabis use, unspecified, uncomplicated | CPT/HCPCS: 99214 ==

== ENCOUNTER → 2020-11-21 08:11 | Outpatient (BNVA) | payer MEDICAID, SELFPAY | PROVIDERS: Referring Provider Orthopaedic Surgery; Visit Provider Anesthesiology Pain Medicine | DX: G89.29 Other chronic pain (principal); M47.816 Spondylosis without myelopathy or radiculopathy, lumbar region; M54.16 Radiculopathy, lumbar region; F12.90 Cannabis use, unspecified, uncomplicated | CPT/HCPCS: 99205 ==

== ENCOUNTER → 2020-11-22 08:25 | Outpatient (BNVA) | payer MEDICAID, SELFPAY | PROVIDERS: Visit Provider Counselor Mental Health | DX: F32.9 Major depressive disorder, single episode, unspecified (principal); F90.2 Attention-deficit hyperactivity disorder, combined type | CPT/HCPCS: 90832 ==

== ENCOUNTER → 2020-12-06 10:40 | Outpatient (BNVA) | payer MEDICAID, SELFPAY | PROVIDERS: Visit Provider Counselor Mental Health | DX: F32.9 Major depressive disorder, single episode, unspecified (principal); F90.2 Attention-deficit hyperactivity disorder, combined type | CPT/HCPCS: 90834 ==

== ENCOUNTER → 2020-12-13 08:55 | Outpatient (BNVA) | payer MEDICAID, SELFPAY | PROVIDERS: Visit Provider Counselor Mental Health | DX: F32.9 Major depressive disorder, single episode, unspecified (principal); F90.2 Attention-deficit hyperactivity disorder, combined type | CPT/HCPCS: 90834 ==

== ENCOUNTER → 2020-12-20 07:48 | Outpatient (BNVA) | payer MEDICAID, SELFPAY | PROVIDERS: Visit Provider Counselor Mental Health | DX: F32.9 Major depressive disorder, single episode, unspecified (principal); F90.2 Attention-deficit hyperactivity disorder, combined type | CPT/HCPCS: 90834 ==

== ENCOUNTER → 2020-12-21 08:07 | Outpatient (BNVA) | payer MEDICAID, SELFPAY | PROVIDERS: Visit Provider Psychiatry & Neurology Psychiatry | DX: F32.5 Major depressive disorder, single episode, in full remission (principal); F90.2 Attention-deficit hyperactivity disorder, combined type; F12.90 Cannabis use, unspecified, uncomplicated; F15.21 Other stimulant dependence, in remission | CPT/HCPCS: 99215 ==

== ENCOUNTER → 2020-12-28 09:02 | Outpatient (BNVA) | payer MEDICAID, SELFPAY | PROVIDERS: Visit Provider Counselor Mental Health | DX: F32.9 Major depressive disorder, single episode, unspecified (principal); F90.2 Attention-deficit hyperactivity disorder, combined type | CPT/HCPCS: 90834 ==

== ENCOUNTER → 2021-01-03 08:25 | Outpatient (BNVA) | payer MEDICAID, SELFPAY | PROVIDERS: Visit Provider Counselor Mental Health | DX: F32.9 Major depressive disorder, single episode, unspecified (principal); F90.2 Attention-deficit hyperactivity disorder, combined type | CPT/HCPCS: 90834 ==

== ENCOUNTER → 2021-01-10 07:35 | Outpatient (BNVA) | payer MEDICAID, SELFPAY | PROVIDERS: Visit Provider Counselor Mental Health | DX: F32.9 Major depressive disorder, single episode, unspecified (principal); F90.2 Attention-deficit hyperactivity disorder, combined type | CPT/HCPCS: 90834 ==

== ENCOUNTER → 2021-01-17 07:25 | Outpatient (BNVA) | payer MEDICAID, SELFPAY | PROVIDERS: Visit Provider Counselor Mental Health | DX: F32.9 Major depressive disorder, single episode, unspecified (principal); F90.2 Attention-deficit hyperactivity disorder, combined type | CPT/HCPCS: 90834 ==

== ENCOUNTER → 2021-01-31 08:31 | Outpatient (BNVA) | payer MEDICAID, SELFPAY | PROVIDERS: Visit Provider Counselor Mental Health | DX: F32.9 Major depressive disorder, single episode, unspecified (principal); F90.2 Attention-deficit hyperactivity disorder, combined type | CPT/HCPCS: 90834 ==

== ENCOUNTER → 2021-02-07 07:42 | Outpatient (BNVA) | payer MEDICAID, SELFPAY | PROVIDERS: Visit Provider Counselor Mental Health | DX: F32.9 Major depressive disorder, single episode, unspecified (principal); F90.2 Attention-deficit hyperactivity disorder, combined type | CPT/HCPCS: 90834 ==

== ENCOUNTER → 2021-02-08 08:05 | Outpatient (BNVA) | payer MEDICAID, SELFPAY | PROVIDERS: Visit Provider Psychiatry & Neurology Psychiatry | DX: F32.5 Major depressive disorder, single episode, in full remission (principal); F90.2 Attention-deficit hyperactivity disorder, combined type; F12.90 Cannabis use, unspecified, uncomplicated; F15.21 Other stimulant dependence, in remission | CPT/HCPCS: 99213 ==

== ENCOUNTER → 2021-02-21 08:00 | Outpatient (BNVA) | payer MEDICAID, SELFPAY | PROVIDERS: Visit Provider Counselor Mental Health | DX: F32.9 Major depressive disorder, single episode, unspecified (principal); F90.2 Attention-deficit hyperactivity disorder, combined type; F41.9 Anxiety disorder, unspecified | CPT/HCPCS: 90834 ==

== ENCOUNTER → 2021-03-13 14:46 | Outpatient (BNVA) | payer MEDICAID, SELFPAY | PROVIDERS: Visit Provider Physician Assistant | DX: M54.9 Dorsalgia, unspecified (principal); M47.816 Spondylosis without myelopathy or radiculopathy, lumbar region; M79.604 Pain in right leg; M79.605 Pain in left leg | CPT/HCPCS: 72110 ==

== ENCOUNTER → 2021-03-14 07:43 | Outpatient (BNVA) | payer MEDICAID, SELFPAY | PROVIDERS: Visit Provider Counselor Mental Health | DX: F32.9 Major depressive disorder, single episode, unspecified (principal); F90.2 Attention-deficit hyperactivity disorder, combined type | CPT/HCPCS: 90834 ==

== ENCOUNTER → 2021-03-21 07:42 | Outpatient (BNVA) | payer MEDICAID, SELFPAY | PROVIDERS: Visit Provider Counselor Mental Health | DX: F32.9 Major depressive disorder, single episode, unspecified (principal); F90.2 Attention-deficit hyperactivity disorder, combined type | CPT/HCPCS: 90834 ==

== ENCOUNTER → 2021-04-12 08:06 | Outpatient (BNVA) | payer MEDICAID, SELFPAY | PROVIDERS: Visit Provider Psychiatry & Neurology Psychiatry | DX: F32.5 Major depressive disorder, single episode, in full remission (principal); F90.2 Attention-deficit hyperactivity disorder, combined type; F12.90 Cannabis use, unspecified, uncomplicated; F15.21 Other stimulant dependence, in remission; R63.4 Abnormal weight loss | CPT/HCPCS: 84443; 99214 ==

== ENCOUNTER → 2021-04-13 08:02 | Outpatient (BNVA) | payer MEDICAID, SELFPAY | PROVIDERS: Visit Provider Counselor Mental Health | DX: F32.9 Major depressive disorder, single episode, unspecified (principal); F90.2 Attention-deficit hyperactivity disorder, combined type | CPT/HCPCS: 90834 ==

== ENCOUNTER → 2021-04-18 07:40 | Outpatient (BNVA) | payer MEDICAID, SELFPAY | PROVIDERS: Visit Provider Counselor Mental Health | DX: F32.9 Major depressive disorder, single episode, unspecified (principal); F90.2 Attention-deficit hyperactivity disorder, combined type | CPT/HCPCS: 90834 ==

== ENCOUNTER → 2021-04-26 08:54 | Outpatient (BNVA) | payer MEDICAID, SELFPAY | PROVIDERS: Visit Provider Counselor Mental Health | DX: F32.9 Major depressive disorder, single episode, unspecified (principal); F90.2 Attention-deficit hyperactivity disorder, combined type | CPT/HCPCS: 90834 ==

== ENCOUNTER → 2021-05-01 07:51 | Outpatient (BNVA) | payer MEDICAID, SELFPAY | PROVIDERS: Visit Provider Counselor Mental Health | DX: F32.9 Major depressive disorder, single episode, unspecified (principal); F90.2 Attention-deficit hyperactivity disorder, combined type | CPT/HCPCS: 90834 ==

== ENCOUNTER → 2021-06-07 07:32 | Outpatient (BNVA) | payer MEDICAID, SELFPAY | PROVIDERS: Visit Provider Psychiatry & Neurology Psychiatry | DX: F32.5 Major depressive disorder, single episode, in full remission (principal); F90.2 Attention-deficit hyperactivity disorder, combined type; R63.4 Abnormal weight loss | CPT/HCPCS: 99213 ==

== ENCOUNTER → 2021-06-08 09:42 | Outpatient (BNVA) | payer MEDICAID, SELFPAY | PROVIDERS: Visit Provider Counselor Mental Health | DX: F32.9 Major depressive disorder, single episode, unspecified (principal); F90.2 Attention-deficit hyperactivity disorder, combined type | CPT/HCPCS: 90834 ==

== ENCOUNTER → 2021-06-22 08:07 | Outpatient (BNVA) | payer MEDICAID, SELFPAY | PROVIDERS: Visit Provider Counselor Mental Health | DX: F32.9 Major depressive disorder, single episode, unspecified (principal); F90.2 Attention-deficit hyperactivity disorder, combined type | CPT/HCPCS: 90834 ==

== ENCOUNTER → 2021-06-29 07:41 | Outpatient (BNVA) | payer MEDICAID, SELFPAY | PROVIDERS: Visit Provider Counselor Mental Health | DX: F32.9 Major depressive disorder, single episode, unspecified (principal); F90.2 Attention-deficit hyperactivity disorder, combined type | CPT/HCPCS: 90834 ==

== ENCOUNTER → 2021-07-06 07:39 | Outpatient (BNVA) | payer MEDICAID, SELFPAY | PROVIDERS: Visit Provider Counselor Mental Health | DX: F32.9 Major depressive disorder, single episode, unspecified (principal); F90.2 Attention-deficit hyperactivity disorder, combined type | CPT/HCPCS: 90834 ==

== ENCOUNTER → 2021-07-12 07:49 | Outpatient (BNVA) | payer MEDICAID, SELFPAY | PROVIDERS: Visit Provider Counselor Mental Health | DX: F32.9 Major depressive disorder, single episode, unspecified (principal); F90.2 Attention-deficit hyperactivity disorder, combined type | CPT/HCPCS: 90834 ==

== ENCOUNTER → 2021-07-19 07:35 | Outpatient (BNVA) | payer MEDICAID, SELFPAY | PROVIDERS: Visit Provider Counselor Mental Health | DX: F32.9 Major depressive disorder, single episode, unspecified (principal); F90.2 Attention-deficit hyperactivity disorder, combined type | CPT/HCPCS: 90834 ==

== ENCOUNTER → 2021-08-02 07:28 | Outpatient (BNVA) | payer MEDICAID, SELFPAY | PROVIDERS: Visit Provider Counselor Mental Health | DX: F32.9 Major depressive disorder, single episode, unspecified (principal); F90.2 Attention-deficit hyperactivity disorder, combined type | CPT/HCPCS: 90834 ==

== ENCOUNTER → 2021-08-09 07:33 | Outpatient (BNVA) | payer MEDICAID, SELFPAY | PROVIDERS: Visit Provider Counselor Mental Health | DX: F32.9 Major depressive disorder, single episode, unspecified (principal); F90.2 Attention-deficit hyperactivity disorder, combined type | CPT/HCPCS: 90834 ==

== ENCOUNTER → 2021-08-16 07:42 | Outpatient (BNVA) | payer MEDICAID, SELFPAY | PROVIDERS: Visit Provider Counselor Mental Health | DX: F32.9 Major depressive disorder, single episode, unspecified (principal); F90.2 Attention-deficit hyperactivity disorder, combined type | CPT/HCPCS: 90832 ==

== ENCOUNTER → 2021-08-30 07:23 | Outpatient (BNVA) | payer MEDICAID, SELFPAY | PROVIDERS: Visit Provider Counselor Mental Health | DX: F32.9 Major depressive disorder, single episode, unspecified (principal); F90.2 Attention-deficit hyperactivity disorder, combined type | CPT/HCPCS: 90832 ==

== ENCOUNTER → 2021-09-06 07:09 | Outpatient (BNVA) | payer MEDICAID, SELFPAY | PROVIDERS: Visit Provider Psychiatry & Neurology Psychiatry | DX: F32.5 Major depressive disorder, single episode, in full remission (principal); F90.2 Attention-deficit hyperactivity disorder, combined type; F12.90 Cannabis use, unspecified, uncomplicated; F15.21 Other stimulant dependence, in remission; R63.4 Abnormal weight loss | CPT/HCPCS: 99214 ==

== ENCOUNTER → 2021-09-11 07:29 | Outpatient (BNVA) | payer MEDICAID, SELFPAY | PROVIDERS: Visit Provider Counselor Mental Health | DX: F32.9 Major depressive disorder, single episode, unspecified (principal); F90.2 Attention-deficit hyperactivity disorder, combined type | CPT/HCPCS: 90832; 90834 ==

== ENCOUNTER 2021-09-19 20:38 | Emergency (ER) | payer MEDICAID, SELFPAY ==
[2021-09-19 20:44] VITALS: BP 146/80; PULSE 91; RESP 16; TEMP 37.2; O2SAT 96; BMI 20.8
[2021-09-19 21:01] VITALS: BP 146/80; PULSE 91; RESP 16; TEMP 37.2; O2SAT 96
[2021-09-19] MEDS: ketorolac 30 mg/mL INJ IM (21:01)
[2021-09-19] MEDS: orphenadrine 30 mg/mL Inj 2 mL 60 MG IM (21:01)
--- NOTE | 2021-09-19 21:08 | W.ED.BACK ---
HPI - Back Pain/Injury General: Chief Complaint: Back Pain/Injury Stated Complaint: Back pain Time Seen by Provider: 09/19/21 20:49 History of Present Illness: 36-year-old male patient comes in today with low back pain. Patient had been shoveling some sand in order to level out to his pool and since then has had increasing back pain. Patient does have a history of chronic back pain. Patient denies any loss of bowel or bladder control. Patient reports no fever. Patient has not taken any medication for his pain except did smoke some marijuana. Patient appears in moderate pain. Patient appears nontoxic. Associated symptoms: Deny fever(s) Review of Systems General: Reports: 10 or more systems reviewed and unremarkable except in HPI and below Const: Denies: fever(s) Card: Denies: chest pain Resp: Denies: dyspnea Musc: Reports: back pain PFS ED PFSH: Medical History Attention-deficit hyperactivity disorder, combined type Chronic pain Psychiatric care Surgical History History of bilateral inguinal hernia repair 2019 History of umbilical hernia repair (09/25/20) S/P laparoscopic appendectomy (09/27/20) Social History Smoking risk assessment/counseling performed?: Yes Tobacco counseling given: counseling >3 minutes Alcohol intake: never Current gender identity: Male Physical Exam Const: COMMON NORMALS: alert HENMT: COMMON NORMALS: atraumatic HEAD & SCALP: atraumatic Neck/C-Spine: COMMON NORMALS: full ROM Resp: COMMON NORMALS: normal respiratory effort Cardio: COMMON NORMALS: regular rate RATE: regular rate Back/Pelvis: LUMBAR SPINE/LOWER BACK: Yes lumbar spinal tenderness Lumbar spinal tenderness location: L4 and L5 and Yes paraspinal muscle tenderness Lumbar paraspinal muscle tenderness: left Neuro: SENSORIUM/ORIENTATION: Yes alert Skin: COMMON NORMALS: no rashes or lesions noted GENERAL SKIN EXAM: no rashes or lesions noted Course Vital Signs: Vital signs: Vital Signs Temperature 98.9 F 09/19/21 21:01 Pulse Rate 91 09/19/21 21:01 Respiratory Rate 16 09/19/21 21:01 Blood Pressure 146/80 09/19/21 21:01 Pulse Oximetry 96 09/19/21 21:01 MDM - Back Pain/Injury Medical Decision Making 36-year-old male patient comes in with exacerbation of back pain. On exam patient has no vertebral tenderness except at his L4-L5 area. No step-off is noted. Patient also has some muscle tightness on the left lower back. Leg lift is positive bilaterally. Worse on the left than the right. Vital signs are normal. Patient denied any numbness to the groin or difficulty with bowel or bladder. Differential diagnosis includes facet arthropathy, degenerative disc disease, lumbar strain. Due to patient's history will go ahead and treat for lumbar strain due to his recent activity. Patient was given a Toradol and orphenadrine shot and will be continued on diclofenac and tizanidine. Patient reported understanding of care plan and need for follow-up or return to the ER. Discharge Plan Discharge Patient Disposition: Home Clinical Impression: Back pain Qualifiers: Back pain location: low back pain Chronicity: unspecified Back pain laterality: left Sciatica presence: with sciatica Sciatica laterality: bilateral sciatica Qualified Code(s): M54.41 - Lumbago with sciatica, right side Condition: Stable Prescriptions: New diclofenac sodium 75 mg tablet,delayed release (DR/EC) 75 mg PO BID Qty: 20 0RF tizanidine 4 mg tablet 4 mg PO Q8H PRN (Reason: muscle spasticity) Qty: 14 0RF No Action clonidine HCl 0.1 mg tablet 0.1 mg PO TID Qty: 90 5RF buspirone 15 mg tablet 15 mg PO BID Qty: 60 1RF Rx Instructions: Take half a tab twice daily for the first 7 days. Discharge Orders: Discharge ED (Routine); Ordered 09/19/21 Ordered By: Campos Lanza Discharge Diet: Usual diet Discharge Activity: Increase activity as tolerated Patient Instructions: Back Pain (ED) Activity Restrictions/Additional Instructions: Activity as tolerated. Gentle stretching and range of motion exercises. Use ice and heat to the area for further pain relief. Use diclofenac and acetaminophen for pain. Use tizanidine for muscle spasms. Drink plenty of water with medication. Follow-up with Dr. Ham regarding further treatment for your back pain. Return to ER for new concerns. Coding Level of Care Code ED Privacy Officer for Chg Fwd
== END 2021-09-19 21:02 | disposition home or self-care (01) ==
PROVIDERS: Emergency Provider Nurse Practitioner Family
DX: M54.42 Lumbago with sciatica, left side (principal); M54.41 Lumbago with sciatica, right side
CPT/HCPCS: 96372; 99283; J1885; J2360

== ENCOUNTER → 2021-11-15 12:25 | Outpatient (BNVA) | payer MEDICAID, SELFPAY | PROVIDERS: Referring Provider Physician Assistant; Visit Provider Specialist | DX: M47.816 Spondylosis without myelopathy or radiculopathy, lumbar region (principal); G62.89 Other specified polyneuropathies | CPT/HCPCS: 95885; 95886; 95909; 99202 ==

== ENCOUNTER → 2021-11-27 10:22 | Outpatient (BNVA) | payer MEDICAID, SELFPAY | PROVIDERS: Visit Provider Physician Assistant | DX: G62.9 Polyneuropathy, unspecified (principal) | CPT/HCPCS: 99213 ==

== ENCOUNTER → 2024-08-09 10:25 | Outpatient (BNVA) | payer BC, SELFPAY | PROVIDERS: Visit Provider Podiatrist Foot & Ankle Surgery | DX: M79.671 Pain in right foot (principal); M79.672 Pain in left foot; M21.611 Bunion of right foot; M21.612 Bunion of left foot; M76.821 Posterior tibial tendinitis, right leg; M76.822 Posterior tibial tendinitis, left leg | CPT/HCPCS: 73630 ==

== ENCOUNTER 2024-10-05 15:00 | Outpatient (CLI) | payer BC, MEDICAID, SELFPAY ==
--- NOTE | 2024-10-05 15:13 | XR_ITS ---
WS: [id number] XR chest 2V* [id number] REASON FOR EXAM: R07.9 - Chest pain, unspecified FINDINGS: Chest is unchanged compared to 04/16/2020. The heart and mediastinum are within normal limits. Calcified granulomatous disease bilaterally. No acute pulmonary parenchymal or pleural abnormality. Mild wedge-shaped compression deformity of T12. Minimal degenerative spondylosis in the mid and lower thoracic spine. XR/XR chest 2V* [id number] IMPRESSION: Stable chest without acute abnormality.
--- NOTE | 2024-10-05 15:13 | XR_ITS ---
WS: [id number] XR thoracic spine 3V* [id number] REASON FOR EXAM: M54.6 - Pain in thoracic spine FINDINGS: The upper thoracic spine is poorly visualized on the lateral. Minimal levoscoliosis of the lower thoracic spine. There is a mild wedge-shaped compression deformity of T12. The thoracic vertebrae are otherwise unremarkable. Disc spaces are intact and relatively well preserved. Minimal endplate sclerosis and minimal osteophytosis in the mid and lower thoracic spine. XR/XR thoracic spine 3V* [id number] IMPRESSION: Minimal scoliosis and degenerative spondylosis.
== END 2024-10-05 15:01 | disposition home or self-care (01) ==
LOC: RAD 15:03
PROVIDERS: PCP Nurse Practitioner Family; Visit Provider Nurse Practitioner Family
DX: R07.9 Chest pain, unspecified (principal); G89.29 Other chronic pain; M48.54XA Collapsed vertebra, not elsewhere classified, thoracic region, initial encounter for fracture; J84.10 Pulmonary fibrosis, unspecified
CPT/HCPCS: 71046; 72072

== ENCOUNTER → 2024-11-11 14:05 | Outpatient (BNVA) | payer BC, MEDICAID, SELFPAY | PROVIDERS: PCP Nurse Practitioner Family; Visit Provider Orthopaedic Surgery | DX: M54.9 Dorsalgia, unspecified (principal); G89.29 Other chronic pain; M54.41 Lumbago with sciatica, right side; M54.42 Lumbago with sciatica, left side | CPT/HCPCS: 72072 ==

== ENCOUNTER 2025-03-07 08:56 | Emergency (ER) | payer BC, MEDICAID, SELFPAY ==
[2025-03-07 09:10] VITALS: BP 120/76; PULSE 74; TEMP 36.5; O2SAT 97; BMI 22.4
--- NOTE | 2025-03-07 10:10 | W.ED.BACK ---
HPI - Back Pain/Injury General: Chief Complaint: Back Pain/Injury Stated Complaint: lower back pain Time Seen by Provider: 03/07/25 09:19 Source: patient Mode of arrival: ambulatory Limitations: no limitations History of Present Illness: Patient is a 39-year-old male with history of chronic lower back pain presenting to the emergency department with complaint of low back pain for 3 days after a fall. Also reports he has neuropathy, this is what caused him to lose balance and fall down, twisting his back. Notes that the pain is lower lumbar spine radiating down both legs, has been ambulatory and has no issues with bowel or bladder incontinence or saddle anesthesia. Has been smoking weed for pain, states he usually takes ibuprofen for his chronic pain but has ran out of this. He reports that he comes here for shots for his back pain and normally this helps. He has seen Dr. Ham in the past for his chronic back pain, and used to see pain management for injections. MD elicited complaint: back pain Pertinent past history: prior back pain Onset (ago): day(s) Timing: constant Severity: similar to previous episodes Associated symptoms: Deny abdominal pain, difficulty walking, fecal incontinence, fever(s) or syncope Related Data Home Medications ?Medication ?Instructions ?Recorded ?Confirmed No Known Home Medications 10/18/24 11/29/24 Allergies Allergy/AdvReac Type Severity Reaction Status Date / Time gabapentin AdvReac Intermediate vivid Verified 03/07/25 09:15 dreams and just made me feel weird Review of Systems General: Reports: 10 or more systems reviewed and unremarkable except in HPI and below Const: Reports: other (denies trauma); Denies: fever(s), change in weight or night sweats Card: Denies: chest pain, lightheadedness or syncope Resp: Denies: dyspnea GI: Denies: abdominal pain or fecal incontinence : Denies: urinary incontinence Musc: Reports: back pain and extremity pain; Denies: neck pain Skin/Breast: Denies: rash or skin pain Neuro: Denies: headache(s), numbness in extremities, weakness in extremities, sensory changes, lack of coordination, difficulty walking, frequent falls or involuntary movements PFS ED PFSH: Medical History Chronic pain Attention-deficit hyperactivity disorder, combined type Surgical History S/P laparoscopic appendectomy (09/27/20) History of umbilical hernia repair (09/25/20) History of bilateral inguinal hernia repair 2019 Social History Smoking and tobacco/nicotine status: former use of tobacco/nicotine Quit status (tobacco/nicotine): has quit using Year quit tobacco: 2021 Second hand smoke exposure: No Alcohol intake: current Alcohol intake frequency: 0-2 Drinks per Day Alcohol type: beer Substance/Drug Use: current Substance/Drug use frequency: daily Other substance/drug use details: Has a medical card Current gender identity: Male Physical Exam Const: COMMON NORMALS: no acute distress, patient oriented x3, no limitations, healthy appearing and alert Resp: COMMON NORMALS: normal respiratory effort, No retractions, No use of accessory muscles and clear to auscultation bilaterally AUSCULTATION: clear to auscultation bilaterally Cardio: COMMON NORMALS: regular rate, regular rhythm, S1 normal heart sound present and S2 normal heart sound present RATE: regular rate RHYTHM: regular rhythm HEART SOUNDS: S1 normal heart sound present and S2 normal heart sound present Back/Pelvis: OTHER: Straight leg raise positive bilaterally. Normal visual examination. Tender to palpation to lower lumbar spine with no step-off deformity. Extremity: COMMON NORMALS: normal to inspection and full ROM Neuro: COMMON NORMALS: patient oriented x3, moves all extremities, no focal motor deficits, no sensory deficits noted, deep tendon reflexes 2+ bilaterally and gait normal SENSORIUM/ORIENTATION: Yes alert OTHER: L3, L4, L5, and S1 nerve sensations intact. Normal knee jerk and ankle jerk reflexes. Skin: COMMON NORMALS: no rashes or lesions noted GENERAL SKIN EXAM: no rashes or lesions noted Course Vital Signs: Vital signs: Vital Signs Temperature 97.7 F 03/07/25 09:10 Pulse Rate 74 03/07/25 09:10 Blood Pressure 120/76 03/07/25 09:10 Pulse Oximetry 97 03/07/25 09:10 Oxygen Delivery Me thod Room Air 03/07/25 09:10 MDM - Back Pain/Injury Medical Decision Making Patient presented with acute on chronic low back pain, he did have a fall he states a few days ago causing this exacerbation. He has been smoking weed for his pain, and states he normally takes ibuprofen but ran out. No red flag symptoms with his history or on exam. He notes significant improvement of his symptoms following medications here in the ED, no acute process and he is allowed discharge home. No radiology studies performed this visit Discharge Plan Discharge Patient Disposition: Home Clinical Impression: Low back pain radiating to both legs Condition: Stable Prescriptions: No Action No Known Home Medications Discharge Orders: Discharge ED (Routine); Ordered 03/07/25 Ordered By: Burt Hayes Referrals: Katie Sibley NP [Primary Care Provider, Family Practice] Patient Instructions: Patient Portal & Hali Instructions Activity Restrictions/Additional Instructions: Follow-up with primary care as needed. Continue [id number] pain medications. Return with any new or worsening. Print Language: Macedonian Coding Level of Care Code ED Heddler Tier for Kaylin Byrd
[2025-03-07] MEDS: HYDROcodone-acetaminophen 7.5-325 mg Tablet 1 TAB PO (10:17)
[2025-03-07] MEDS: orphenadrine 30 mg/mL Inj 2 mL 60 MG IM (10:19)
[2025-03-07 11:13] VITALS: BP 130/89; PULSE 89; RESP 16; O2SAT 99
[2025-03-07 11:15] VITALS: BP 139/89; PULSE 87; O2SAT 99
== END 2025-03-07 11:21 | disposition home or self-care (01) ==
PROVIDERS: Emergency Provider Physician Assistant; PCP Nurse Practitioner Family
DX: M54.50 Low back pain, unspecified (principal); M79.604 Pain in right leg; M79.605 Pain in left leg; Z87.891 Personal history of nicotine dependence
CPT/HCPCS: 96372; 99284; J1100; J1885; J2360; J9999